=== PATIENT | female | born 1985 | race African-American/Black ===

== ENCOUNTER 2024-12-25 14:36 | Emergency (ER) | payer OTHER ==
--- OUTSIDE RECORDS SUMMARY | 2024-12-25 14:49 | XMS REPORT | Continuity of Care Document ---
Author Name Unknown Address [address] [facility] [address] [place] [address] [facility] [place] Address [address] [facility] [address] [place] [address] Care Team Providers Care Certified Technician Name Role Phone OmairaAyoa Primary Care Physician [phone] CORETTA WATST Attending Clinician Unavail able LAITH ANDRES Attending Clinician UnavailPAULETTE Strong Attending Clinician Unavailab Coretta Mitchell MD Attending Clinician Hermelindo Carias MD Attending Clinician [phone] RONA PEREZ Attending Clinician Unavailable DARRELL LYLES Attending Clinician Unavailable GM CHAWLA Attending Clinician Unavailable Mikayla Hale DNP Attending Clinician [phone] TING SOTO Attending Clinician Unavailable MIKAYLA HALE Attending Clinician Unavailable TAMARA AKINS Attending Clinician Unavailab Marilyn Hutchins MD Attending Clinician [phone]- [phone] Doctor Unassigned, [place] Attending Clinician U MARILYN Da Silva Attending Clinician MARILYN Middleton Attending Clinician LISETH Solitario JR Attending Clinician Unavailable RAFI ANDREWS Attending Clinician UnavailMARIYA Webb Attending Clinician Unavailabl e 2, [facility] Attending Clinician Unavailable JOAQUIN ROSE Attending Clinician UnavailSELINA Hewitt Attending Clinician Unavailab Mariya Avila Attending Clinician [phone] Stephanie Attending Clinician Unavailable RACHELLE Attending Clinician Unavailable GIBRAN COHEN Attending Clinician Unavailable Nguyen_Tho Attending Clinician Unavailable ZACK SUTTON Attending Clinician Unavailable BASSAM WADE Attending Clinician Unavailab BOWEN Miller Attending Clinician Unavail able EUGENIE GANDARA Attending Clinician Unavailable Nichol MINAYA, Eugenie Attending Clinician [phone] BASIM MADRIGAL Attending Clinician Unavailable Maite Garcia MD Attending Clinician [phone] MAITE GARCIA Attending Clinician Unavailadi ramirez Doctor Unassigned, [place] Attending Clinician U Melo Johnson Attending Clinician Unavailable America Nagel Attending Clinician Unavailable MARILYN RAI Admitting Clinician Charles Brown Admitting Clinician Unavailable RACHELLE Admitting Clinician Unavailable Nguyen_Thmaria guadalupe Admitting Clinician Unavailable MAITE GARCIA Admitting Clinician Unavailadi ramirez Physician, No Primary or Family Admitting Clinic aga Unavailable Payers Payer Name Policy Type Policy Number Effective Date Expirati on Date Source [facility] STAR [id number] 2021 00:00:00 [facility] STAR [id number] 2021 00:00:00 [facility] Medicaid [id number] 2024 00:00:00 [facility] [place] [id number] 2023 00:00:00 [place] [id number] [place] [id number] Problems Condition Name Condition Details Condition Category Status Onset Date Resolution Date Last Treatment Date Treating Clinician Comments Source Family history of malignant neoplasm of pancreas Family History of Malignant Neoplasm of Pancreas Problem Active 2024-03 0-16 00:00: 00 [facility] Alopecia Alopecia Problem Active 2024-03 0-08 00:00: 00 [facility] Lower urinary tract symptoms Lower Urinary Tract Symptoms Problem Active 9- 00:00: 00 [facility] 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 Problem Active 9 00:00: 00 [facility] Neck pain Neck Pain Problem Active 7- 00:00: 00 [facility] Headache Headache Problem Active 07-06 00:00: 00 [facility] Myopia of left eye Myopia of Left Eye Problem Active 07-06 00:00: 00 [facility] Regular astigmatis m of right eye Regular Astigmatis m of Right Eye Problem Active 07-06 00:00: 00 [facility] Abnormal uterine bleeding Abnormal Uterine Bleeding Problem Active 3-10 00:00: 00 [facility] Intramural , submucous, and subserous leiomyoma of uterus Intramural , submucous, and subserous leiomyoma of uterus Disease Active - 00:00: 00 [facility] BMI 45.0-49.9, adult BMI 45.0-49.9, adult Disease Active 2-28 00:00: 00 [facility] acute hospital Herpes zoster Herpes Zoster Problem Active 2023-03 2-28 00:00: 00 [facility] Vitamin deficiency Vitamin Deficiency Problem Active 2023-03 1-25 00:00: 00 [facility] Iron deficiency anemia Iron Deficiency Anemia Problem Active 6-04 00:00: 00 [facility] Erythrocyt e sedimentat ion rate - finding Erythrocyt e Sedimentat ion Rate - Finding Problem Active 6-04 00:00: 00 [facility] Cyst of corpus luteum of right ovary Cyst of Corpus Luteum of Right Ovary Problem Active 4-28 00:00: 00 [facility] Acute pelvic pain Acute Pelvic Pain Problem Active 4-15 00:00: 00 [facility] Intramural leiomyoma of uterus Intramural Leiomyoma of Uterus Problem Active 4-15 00:00: 00 [facility] Uterine leiomyoma Uterine Leiomyoma Problem Active 3-12 00:00: 00 [facility] No known active problems No known active problems Disease General acute hospital Allergies, Adverse Reactions, Alerts Allergy Name Allergy Type Status Severity Reaction(s) Onset Date Inactive Date Treating Clinician Comments Source Ciproflo xacin Propensi ty to adverse reaction s Active Other - See comments 2- 00:00: 00 [facility] acute hospital CIPROFLO XACIN DRUG INGREDI Active Other-Cmnt 2-23 00:00: 00 [facility] acute hospital Ciproflo xacin Allergy to substanc e Active Other 2-23 00[facility]00[facility] No Known Allergie s DA Active U 2020-03 2- 00:00: 00 [facility] are [facility] Cipro Allergy to substanc e Active Moderate severity Nausea [facility] Nitrofur antoin Allergy to substanc e Active Mild Nausea [facility] NO KNOWN ALLERGIE S Drug Class Active [facility] acute hospital Family History Family Member Diagnosis Comments Start Date Stop Date Sourc e Natural father Unive [facility] Maternal grandmother Stroke [facility] Natural mother Pancreatic Cancer [facility] Social History Social Habit Start Date Stop Date Quantity Comments Source ASSERTION Not [facility] Al[facility] beverage intake 2024-09-24 00:00:00 2024-09-24 00:00:00 Ex-drinker (finding) [facility] Tobacco use and exposure 2023-10-21 00:00:00 2023-10-21 00:00:00 Smokeless tobacco non-user [facility] Alcohol intake 2023-01-13 00:00:00 2023-01-13 00:00:00 Lifetime non-drinker (finding) [facility] Sex 2021-12-17 09:12:40 2021-12-17 09:12:40 Female (finding) [facility] Exposure to SARS-CoV-2 (event) 2021-07-03 00:00:00 2021-07-13 12:52:00 Not sure [facility] History of Social function 2021-04-06 00:00:00 2021-04-06 00:00:00 [facility] Sex assigned at 1985 00:00:00 1985 00:00:00 F [facility] Smoking Status Start Date Stop Date Source Never smoked tobacco [facility] acute hospital Tobacco smoking consumption unknown [facility] Medications Ordered Medication Name Filled Medication Name Start Date Stop Date Current Medication? Ordering Clinician Indication Dosage Frequency Signature (SIG) Comments Components Source doxycycline monohydrate 100 mg capsule 2024-03 00:00: 00 Yes [id number] 100mg Take 1 capsule by mouth in the morning and 1 capsule in the evening. Take with food and water.. [facility] acute hospital clobetasoL 0.05 % scalp solution 2024-03 00:00: 00 Yes [id number] Apply to areas(s) 2 times daily. Avoid use on the face. [facility] hospital miSOPROStoL 200 mcg tablet 05-17 00:00: 00 Yes [id number] Take one tablet the night before endometria l biopsy procedure and take one tablet the morning of the procedure. This is not for abortive treatment; patient will have endometria l biospy. [facility] acute hospital fluconazole 150 mg tablet 05-07 00:00: 00 05-08 05:59 :00 No [id number] 150mg Take 1 tablet by mouth once now for 1 dose. [facility] nystatin 100,000 unit/gram ointment 2023-03 00:00: 00 09-24 00:00 :00 No [id number] Apply to area(s) 2 (two) times daily as needed for Itching (to vulvar). [facility] triamcinolo ne acetonide 0.1 % topical cream APPLY THIN LAYER TOPICALLY TO THE AFFECTED AREA TWICE DAILY triamcinolo ne acetonide 0.1 % topical cream APPLY THIN LAYER TOPICALLY TO THE AFFECTED AREA TWICE DAILY 2023-03 00:00: 00 No triamcinol one acetonide 0.1 % topical cream APPLY THIN LAYER TOPICALLY TO THE AFFECTED AREA TWICE DAILY [facility] FERROUS SULFATE ORAL 10-20 13:38: 04 Yes Take by mouth. [facility] acute hospital miSOPROStoL 200 mcg tablet 10-20 00:00: 00 Yes [id number] 100 Take one tablet the night before endometria l biopsy procedure and take one tablet the morning of the procedure. This is not for abortive treatment; patient will have endometria l biospy. [facility] acute hospital tobramycin 0.3 % ophthalmic drops 08-11 00:00: 00 Yes [facility] acute hospital carBAMazepi ne (TEGretol) 200 MG tablet 2022-03 08:07: 54 Yes 200mg Take 200 mg by mouth every night. [facility] gabapentin (Neurontin) 300 MG capsule 05-29 00:00: 00 05-11 00:00 :00 No [facility] methylPREDN ISolone (MEDROL, LELIA,) 4 mg tablets 04-06 00:00: 00 Yes Take by mouth SEE-INSTRU CTIONS. follow package directions [facility] acute hospital bromphenira mine-pseudo ephedrine-D M 2-30-10 mg/5 mL syrup 03-29 00:00: 00 Yes [facility] acute [facility] naproxen 500 mg EC tablet 03-29 00:00: 00 Yes [facility] acute hospital iron 65 mg tablet Take by oral route. iron 65 mg tablet Take by oral route. No iron 65 mg tablet Take by oral route. [facility] Vitamin D3 Vitamin D3 No Vitamin D3 [facility] cyclobenzap rine 5 mg tablet Take 1 tablet 3 times a day by oral route as needed, for muscle tightness/s pasm. cyclobenzap rine 5 mg tablet Take 1 tablet 3 times a day by oral route as needed, for muscle tightness/s pasm. No 1 TID cyclobenza cha 5 mg tablet Take 1 tablet 3 times a day by oral route as needed, for muscle tightness/ spasm. [facility] carbamazepi ne 200 mg tablet TAKE 1 TABLET BY MOUTH AT BEDTIME carbamazepi ne 200 mg tablet TAKE 1 TABLET BY MOUTH AT BEDTIME No carbamazep ine 200 mg tablet TAKE 1 TABLET BY MOUTH AT BEDTIME [facility] Bactrim DS 800 mg-160 mg tablet Take 1 tablet every 12 hours by oral route for 7 days. Bactrim DS 800 mg-160 mg tablet Take 1 tablet every 12 hours by oral route for 7 days. No 1 Q12H Bactrim DS 800 mg-160 mg tablet Take 1 tablet every 12 hours by oral route for 7 days. [facility] omeprazole 20 mg capsule,del ayed release Take 1 capsule twice a day by oral route. omeprazole 20 mg capsule,del ayed release Take 1 capsule twice a day by oral route. No 1capsul e(s) BID omeprazole 20 mg capsule,de layed release Take 1 capsule twice a day by oral route. [facility] Slow Fe Slow Fe No Slow Fe M ynes [facility] valacyclovi r 1 gram tablet TAKE 1 TABLET BY MOUTH THREE TIMES DAILY FOR SHINGLES valacyclovi r 1 gram tablet TAKE 1 TABLET BY MOUTH THREE TIMES DAILY FOR SHINGLES No valacyclov ir 1 gram tablet TAKE 1 TABLET BY MOUTH THREE TIMES DAILY FOR SHINGLES [facility] gabapentin 300 mg capsule gabapentin 300 mg capsule No gabapentin 300 mg capsule [facility] metronidazo le 500 mg tablet Take 1 tablet twice a day by oral route for 2 days, for BV prevention every two weeks. metronidazo le 500 mg tablet Take 1 tablet twice a day by oral route for 2 days, for BV prevention every two weeks. No 1 BID metronidaz ole 500 mg tablet Take 1 tablet twice a day by oral route for 2 days, for BV prevention every two weeks. [facility] ondansetron HCl 4 mg tablet ondansetron HCl 4 mg tablet No ondansetro n HCl 4 mg tablet [facility] omeprazole 40 mg capsule,del ayed release TAKE 1 CAPSULE BY MOUTH EVERY DAY omeprazole 40 mg capsule,del ayed release TAKE 1 CAPSULE BY MOUTH EVERY DAY No omeprazole 40 mg capsule,de layed release TAKE 1 CAPSULE BY MOUTH EVERY DAY [facility] Vital Signs Vital Name Observation Time Observation Value Comments S ource BMI (Body Mass Index) 2024-12-23 00:00:00 49.4 kg/m2 [facility] Height 2024-12-23 00:00:00 62 [in_i] [facility] orda [facility] BP Systolic 2024-12-23 00:00:00 118 mm[Hg] [facility] dag[facility]to [facility] BP Diastolic 2024-12-23 00:00:00 78 mm[Hg] [facility] Body Weight 2024-12-23 00:00:00 4323 [oz_av] Ma [facility] Height 2024-12-08 00:00:00 62 [in_i] [facility] BP Diastolic 2024-12-08 00:00:00 82 mm[Hg] [facility] Body Weight 2024-12-08 00:00:00 272.2 [lb_av] [place] [facility] BP Systolic 2024-12-08 00:00:00 122 mm[Hg] [facility] dagoberto [facility] BMI (Body Mass Index) 2024-12-08 00:00:00 49.8 kg/m2 [place] [facility] Height 2024-12-03 00:00:00 62 [in_i] [facility] BMI (Body Mass Index) 2024-12-03 00:00:00 50.7 kg/m2 [place] BP Diastolic 2024-12-03 00:00:00 85 mm[Hg] Jesus friedrdjohana [facility] Body Weight 2024-12-03 00:00:00 4432 [oz_av] Glen zhouordjohana [facility] BP Systolic 2024-12-03 00:00:00 138 mm[Hg] Lyndon arenas [facility] BP Systolic 2024-10-19 00:00:00 139 mm[Hg] Lyndon wilkersona [facility] BMI (Body Mass Index) 2024-10-19 00:00:00 50.4 kg/m2 Jay [facility] Body Weight 2024-10-19 00:00:00 275.4 [lb_av] M franrdjohana [facility] BP Diastolic 2024-10-19 00:00:00 88 mm[Hg] Jesus friedrdjohana [facility] Height 2024-10-19 00:00:00 62 [in_i] Bindu danielsa [facility] Systolic blood pressure 2024-09-24 18:01:00 118 mm[Hg] [facility] Diastolic blood pressure 2024-09-24 18:01:00 78 mm[Hg] [facility] Heart rate 2024-09-24 18:01:00 91 /min [facility] Body temperature 2024-09-24 18:01:00 36.33 [place] [facility] Body height 2024-09-24 18:01:00 160 cm [facility] Body weight 2024-09-24 18:01:00 122.653 kg [facility] BMI 2024-09-24 18:01:00 47.90 kg/m2 [facility] Oxygen saturation in Arterial blood by Pulse oximetry 2024-09-24 18:01:00 100 /min [facility] BMI (Body Mass Index) 2024-09-08 00:00:00 49 kg/m2 [facility] Height 2024-09-08 00:00:00 62 [in_i] Bindu danielsa [facility] BP Diastolic 2024-09-08 00:00:00 70 mm[Hg] [place] [facility] BP Systolic 2024-09-08 00:00:00 115 mm[Hg] Haney dagoberto [facility] Body Weight 2024-09-08 00:00:00 268 [lb_av] Jesus [place] Body Weight 2024-08-26 00:00:00 368.2 [lb_av] [facility] BMI (Body Mass Index) 2024-08-26 00:00:00 67.3 kg/m2 [facility] BP Systolic 2024-08-26 00:00:00 124 mm[Hg] [facility] Height 2024-08-26 00:00:00 62 [in_i] [facility] BP Diastolic 2024-08-26 00:00:00 85 mm[Hg] [facility] BP Systolic 2024-08-23 00:00:00 111 mm[Hg] Haney dagoberto [facility] BP Diastolic 2024-08-23 00:00:00 78 mm[Hg] [place] [facility] Height 2024-08-23 00:00:00 62 [in_i] [place] [facility] [facility] BMI (Body Mass Index) 2024-08-23 00:00:00 48.9 kg/m2 [facility] Body Weight 2024-08-23 00:00:00 4278 [oz_av] [facility] BP Diastolic 2024-08-13 00:00:00 87 mm[Hg] [facility] BP Systolic 2024-08-13 00:00:00 125 mm[Hg] [facility] Body Weight 2024-08-13 00:00:00 267.3 [lb_av] [facility] BMI (Body Mass Index) 2024-08-13 00:00:00 48.9 kg/m2 [facility] Height 2024-08-13 00:00:00 62 [in_i] [facility] Body Weight 2024-07-06 00:00:00 267 [lb_av] Jesus friedrda [facility] Height 2024-07-06 00:00:00 62 [in_i] Bindu orda [facility] BMI (Body Mass Index) 2024-07-06 00:00:00 48.8 kg/m2 [place] [facility] Oxygen saturation in Arterial blood by Pulse oximetry 2024-07-05 13:23:00 99 /min [facility] Systolic blood pressure 2024-07-05 13:23:00 107 mm[Hg] [facility] Diastolic blood pressure 2024-07-05 13:23:00 67 mm[Hg] [facility] Heart rate 2024-07-05 13:23:00 80 /min [facility] Body temperature 2024-07-05 13:23:00 36.39 [place] [facility] Respiratory rate 2024-07-05 13:23:00 17 /min [facility] Body height 2024-07-05 13:23:00 [facility] Body weight 2024-07-05 13:23:00 [facility]02 [facility] BMI 2024-07-05 13:23:00 44.40 [facility]m2 [facility] BP Diastolic 2024-06-23 00:00:00 79 mm[Hg] Jesus friedrda [facility] Height 2024-06-23 00:00:00 62 [in_i] Bindu orda [facility] BMI (Body Mass Index) 2024-06-23 00:00:00 48.9 kg/m2 [place] [facility] Body Weight 2024-06-23 00:00:00 4278 [oz_av] Glen [facility] BP Systolic 2024-06-23 00:00:00 128 mm[Hg] Lyndon wilkersona [facility] Height 2024-06-10 00:00:00 62 [in_i] Bindu danielsa [facility] Body Weight 2024-06-10 00:00:00 263 [lb_av] Jesus friedrda [facility] BP Diastolic 2024-06-10 00:00:00 85 mm[Hg] Jesus friedrda [facility] BP Systolic 2024-06-10 00:00:00 142 mm[Hg] H[facility] dagoberto [facility] BMI (Body Mass Index) 2024-06-10 00:00:00 48.1 kg/m2 [place] [facility] Height 2024-06-03 00:00:00 62 [in_i] [place] [facility] BMI (Body Mass Index) 2024-06-03 00:00:00 49.4 kg/m2 [place] [facility] Body Weight 2024-06-03 00:00:00 270 [lb_av] [facility] [place] [facility] BP Systolic 2024-06-03 00:00:00 113 mm[Hg] Haney dagoberto [facility] BP Diastolic 2024-06-03 00:00:00 70 mm[Hg] [facility] Systolic blood pressure 2024-05-07 17:34:00 124 mm[Hg] [facility] Diastolic blood pressure 2024-05-07 17:34:00 78 mm[Hg] [facility] Heart rate 2024-05-07 17:32:00 84 /min [facility] Body temperature 2024-05-07 17:32:00 36.67 [place] [facility] Body height 2024-05-07 17:32:00 157.5 cm [facility] Body weight 2024-05-07 17:32:00 120.838 kg [facility] BMI 2024-05-07 17:32:00 48.73 kg/m2 [facility] Body Weight 2024-04-27 00:00:00 267 [lb_av] [facility] BP Diastolic 2024-04-27 00:00:00 82 mm[Hg] [facility] Height 2024-04-27 00:00:00 62 [in_i] [facility] BP Systolic 2024-04-27 00:00:00 132 mm[Hg] [facility] BMI (Body Mass Index) 2024-04-27 00:00:00 48.8 kg/m2 [facility] BP Systolic 2024-04-08 00:00:00 131 mm[Hg] [facility] BMI (Body Mass Index) 2024-04-08 00:00:00 48.6 kg/m2 [facility] Body Weight 2024-04-08 00:00:00 265.5 [lb_av] [facility] Height 2024-04-08 00:00:00 62 [in_i] [facility] BP Diastolic 2024-04-08 00:00:00 85 mm[Hg] [facility] BMI (Body Mass Index) 2024-03-22 00:00:00 48.2 kg/m2 [facility] BP Systolic 2024-03-22 00:00:00 108 mm[Hg] H[facility] dagoberto [facility] Body Weight 2024-03-22 00:00:00 263.8 [lb_av] [facility] [facility] BP Diastolic 2024-03-22 00:00:00 73 mm[Hg] [facility] [place] [facility] Height 2024-03-22 00:00:00 62 [in_i] [facility] [facility] BMI (Body Mass Index) 2024-03-06 00:00:00 48.3 kg/m2 [facility] Body Weight 2024-03-06 00:00:00 4224 [oz_av] [place] [facility] BP Systolic 2024-03-06 00:00:00 100 mm[Hg] H[facility] dagoberto [facility] BP Diastolic 2024-03-06 00:00:00 70 mm[Hg] [facility] [place] [facility] Height 2024-03-06 00:00:00 62 [in_i] [facility] [facility] Systolic blood pressure 2024-01-30 13:42:00 111 mm[Hg] [facility] Diastolic blood pressure 2024-01-30 13:42:00 74 mm[Hg] [facility] Heart rate 2024-01-30 13:42:00 77 /min [facility] Respiratory rate 2024-01-30 13:42:00 18 /min [facility] Body height 2024-01-30 13:42:00 157.5 cm [facility] Body weight 2024-01-30 13:42:00 115.667 kg [facility] BMI 2024-01-30 13:42:00 46.64 kg/m2 [facility] Height 2024-01-22 00:00:00 62 [in_i] [place] [facility] BP Systolic 2024-01-22 00:00:00 128 mm[Hg] Haney dagoberto [facility] Body Weight 2024-01-22 00:00:00 4068 [oz_av] [facility] BP Diastolic 2024-01-22 00:00:00 83 mm[Hg] [facility] [place] [facility] BMI (Body Mass Index) 2024-01-22 00:00:00 46.5 kg/m2 [place] [facility] Height 2024-01-16 00:00:00 62 [in_i] [facility] BP Diastolic 2024-01-16 00:00:00 86 mm[Hg] [facility] BP Systolic 2024-01-16 00:00:00 118 mm[Hg] [facility] Body Weight 2024-01-16 00:00:00 251 [lb_av] [facility] BMI (Body Mass Index) 2024-01-16 00:00:00 45.9 kg/m2 [facility] BMI (Body Mass Index) 2024-01-07 00:00:00 45.7 kg/m2 [place] Height 2024-01-07 00:00:00 62 [in_i] [place] [facility] Body Weight 2024-01-07 00:00:00 250 [lb_av] [place] [facility] BP Diastolic 2024-01-07 00:00:00 90 mm[Hg] [facility] [place] [facility] BP Systolic 2024-01-07 00:00:00 124 mm[Hg] [facility] dag[facility] BP Systolic 2023-12-30 00:00:00 111 mm[Hg] [facility] dag[facility] Height 2023-12-30 00:00:00 62 [in_i] [place] [facility] Body Weight 2023-12-30 00:00:00 257.6 [lb_av] [facility] [facility] BMI (Body Mass Index) 2023-12-30 00:00:00 47.1 kg/m2 [facility] BP Diastolic 2023-12-30 00:00:00 69 mm[Hg] [facility] BP Diastolic 2023-12-17 00:00:00 85 mm[Hg] Jesus friedrda [facility] Body Weight 2023-12-17 00:00:00 4048 [oz_av] Glen zhouorda [facility] BP Systolic 2023-12-17 00:00:00 121 mm[Hg] Haney dagoberto [facility] Height 2023-12-17 00:00:00 62 [in_i] Matbalta orda [facility] BMI (Body Mass Index) 2023-12-17 00:00:00 46.3 kg/m2 [place] [facility] BMI (Body Mass Index) 2023-12-12 00:00:00 45.5 kg/m2 [facility] Body Weight 2023-12-12 00:00:00 248.5 [lb_av] [facility] BP Systolic 2023-12-12 00:00:00 122 mm[Hg] [facility] BP Diastolic 2023-12-12 00:00:00 75 mm[Hg] [facility] Height 2023-12-12 00:00:00 62 [in_i] [facility] BP Diastolic 2023-12-04 00:00:00 78 mm[Hg] [facility] Height 2023-12-04 00:00:00 62 [in_i] [facility] BMI (Body Mass Index) 2023-12-04 00:00:00 45.2 kg/m2 [facility] Body Weight 2023-12-04 00:00:00 247.4 [lb_av] [facility] BP Systolic 2023-12-04 00:00:00 117 mm[Hg] [facility] BMI (Body Mass Index) 2023-11-20 00:00:00 45.6 kg/m2 [place] [facility] BP Systolic 2023-11-20 00:00:00 107 mm[Hg] Haney dagoberto [facility] Body Weight 2023-11-20 00:00:00 249.2 [lb_av] M franrda [facility] Height 2023-11-20 00:00:00 62 [in_i] [place] [facility] BP Diastolic 2023-11-20 00:00:00 70 mm[Hg] Mat ag[facility] BP Diastolic 2023-11-11 00:00:00 79 mm[Hg] Mat [facility] Body Weight 2023-11-11 00:00:00 251.8 [lb_av] M franrda [facility] Height 2023-11-11 00:00:00 62 [in_i] [place] [facility] BP Systolic 2023-11-11 00:00:00 123 mm[Hg] Haney dagoberto [facility] BMI (Body Mass Index) 2023-11-11 00:00:00 46.1 kg/m2 [place] [facility] Height 2023-11-03 00:00:00 62 [in_i] [place] [facility] BP Diastolic 2023-11-03 00:00:00 79 mm[Hg] Mat [facility] Body Weight 2023-11-03 00:00:00 250 [lb_av] [facility] BP Systolic 2023-11-03 00:00:00 118 mm[Hg] Haney dagoberto [facility] BMI (Body Mass Index) 2023-11-03 00:00:00 45.7 kg/m2 [place] [facility] Systolic blood pressure 2023-10-21 18:36:00 133 mm[Hg] [facility] Diastolic blood pressure 2023-10-21 18:36:00 78 mm[Hg] [facility] Heart rate 2023-10-21 18:36:00 77 /min [facility] Respiratory rate 2023-10-21 18:36:00 18 /min [facility] Body height 2023-10-21 18:36:00 157.5 cm [facility] Body weight 2023-10-21 18:36:00 114.306 kg [facility] BMI 2023-10-21 18:36:00 46.09 kg/m2 [facility] Body Weight 2023-09-10 00:00:00 3992 [oz_av] Glen [facility] BMI (Body Mass Index) 2023-09-10 00:00:00 45.6 kg/m2 [place] [facility] Height 2023-09-10 00:00:00 62 [in_i] [place] [facility] BP Systolic 2023-09-10 00:00:00 117 mm[Hg] Haney dagoberto [facility] BP Diastolic 2023-09-10 00:00:00 78 mm[Hg] Mat [facility] Height 2023-08-21 00:00:00 62 [in_i] [place] [facility] BP Diastolic 2023-08-21 00:00:00 69 mm[Hg] Mat [facility] Body Weight 2023-08-21 00:00:00 4053 [oz_av] Glen [facility] BMI (Body Mass Index) 2023-08-21 00:00:00 46.3 kg/m2 [place] [facility] BP Systolic 2023-08-21 00:00:00 101 mm[Hg] Haney dagoberto [facility] Body Weight 2023-08-12 00:00:00 4006 [oz_av] Glen [facility] BP Systolic 2023-08-12 00:00:00 121 mm[Hg] Haney dagoberto [facility] BMI (Body Mass Index) 2023-08-12 00:00:00 45.8 kg/m2 [place] [facility] BP Diastolic 2023-08-12 00:00:00 84 mm[Hg] [facility] Height 2023-08-12 00:00:00 62 [in_i] [place] [facility] [facility] Height 2023-07-07 00:00:00 62 [in_i] [facility] BP Systolic 2023-07-07 00:00:00 110 mm[Hg] [facility] BP Diastolic 2023-07-07 00:00:00 77 mm[Hg] [facility] BMI (Body Mass Index) 2023-07-07 00:00:00 44.9 kg/m2 [facility] Body Weight 2023-07-07 00:00:00 245.5 [lb_av] [facility] Body Weight 2023-06-30 00:00:00 246 [lb_av] Jesus [facility] Height 2023-06-30 00:00:00 62 [in_i] [place] [facility] BP Systolic 2023-06-30 00:00:00 113 mm[Hg] Haney dagoberto [facility] BP Diastolic 2023-06-30 00:00:00 79 mm[Hg] Mat [facility] BMI (Body Mass Index) 2023-06-30 00:00:00 45 kg/m2 [place] [facility] BP Systolic 2023-06-23 00:00:00 114 mm[Hg] [facility] Body Weight 2023-06-23 00:00:00 250 [lb_av] [facility] Height 2023-06-23 00:00:00 62 [in_i] [facility] BP Diastolic 2023-06-23 00:00:00 82 mm[Hg] [facility] BMI (Body Mass Index) 2023-06-23 00:00:00 45.7 kg/m2 [facility] Height 2023-06-12 00:00:00 62 [in_i] Bindu orda [facility] Body Weight 2023-06-12 00:00:00 249.6 [lb_av] M atag[facility]a [facility] BP Systolic 2023-06-12 00:00:00 126 mm[Hg] Haney dagoberto [facility] BMI (Body Mass Index) 2023-06-12 00:00:00 45.7 kg/m2 [place] [facility] BP Diastolic 2023-06-12 00:00:00 83 mm[Hg] Jesus agorda [facility] Body Weight 2023-06-04 00:00:00 249.6 [lb_av] M at[facility] BP Systolic 2023-06-04 00:00:00 119 mm[Hg] Haney dagoberto [facility] BMI (Body Mass Index) 2023-06-04 00:00:00 45.7 kg/m2 [place] [facility] BP Diastolic 2023-06-04 00:00:00 87 mm[Hg] [facility] Height 2023-06-04 00:00:00 62 [in_i] [place] [facility] [facility] BMI (Body Mass Index) 2023-05-22 00:00:00 47 kg/m2 [place] [facility] BP Diastolic 2023-05-22 00:00:00 78 mm[Hg] [facility] Height 2023-05-22 00:00:00 62 [in_i] [place] [facility] Body Weight 2023-05-22 00:00:00 257 [lb_av] [facility] BP Systolic 2023-05-22 00:00:00 107 mm[Hg] Haney dagoberto [facility] BP Systolic 2023-05-13 00:00:00 107 mm[Hg] Haney dagoberto [facility] Body Weight 2023-05-13 00:00:00 254 [lb_av] Jesus friedrda [facility] Height 2023-05-13 00:00:00 62 [in_i] Bindu orda [facility] BP Diastolic 2023-05-13 00:00:00 77 mm[Hg] Jesus friedrda [facility] BMI (Body Mass Index) 2023-05-13 00:00:00 46.5 kg/m2 [place] [facility] Systolic blood pressure 2023-05-12 19:10:00 127 mm[Hg] [facility] Diastolic blood pressure 2023-05-12 19:10:00 88 mm[Hg] [facility] Heart rate 2023-05-12 19:10:00 77 /[facility] 2023-05-12 19:10:00 [facility]667 [facility] BMI 2023-05-12 19:10:00 46.64 [facility]m2 [facility] Oxygen saturation in Arterial blood by Pulse oximetry 2023-05-12 19:10:00 99 /min [facility] BMI (Body Mass Index) 2023 00:00:00 47.5 kg/m2 [place] [facility] Body Weight 2023 00:00:00 4151 [oz_av] Glen adams [facility] Height 2023 00:00:00 62 [in_i] Bindu orda [facility] BP Systolic 2023 00:00:00 130 mm[Hg] Lyndon wilkersona [facility] BP Diastolic 2023 00:00:00 87 mm[Hg] Jesus friedrda [facility] Height 2023-04-29 00:00:00 62 [in_i] Bindu orda [facility] BP Systolic 2023-04-29 00:00:00 133 mm[Hg] Haney dagoberto [facility] BMI (Body Mass Index) 2023-04-29 00:00:00 47 kg/m2 [place] [facility] Body Weight 2023-04-29 00:00:00 4112 [oz_av] Glen [facility] BP Diastolic 2023-04-29 00:00:00 86 mm[Hg] Jesus ag[facility]a [facility] Body Weight 2023-04-28 00:00:00 258.8 [lb_av] Nimco [facility]lagorda [facility] BP Systolic 2023-04-28 00:00:00 121 mm[Hg] Haney dagoberto [facility] Height 2023-04-28 00:00:00 62 [in_i] [place] or[facility] BP Diastolic 2023-04-28 00:00:00 90 mm[Hg] [facility] BMI (Body Mass Index) 2023-04-28 00:00:00 47.3 kg/m2 [place] [facility] Body Weight 2023-04-22 00:00:00 4240 [oz_av] [place] [facility] [facility] BP Systolic 2023-04-22 00:00:00 135 mm[Hg] Haney dagoberto [facility] BMI (Body Mass Index) 2023-04-22 00:00:00 48.5 kg/m2 [place] [facility] Height 2023-04-22 00:00:00 62 [in_i] [facility] [facility] BP Diastolic 2023-04-22 00:00:00 92 mm[Hg] [facility] Body Weight 2023-04-10 00:00:00 260 [lb_av] Jesus friedrda [facility] BMI (Body Mass Index) 2023-04-10 00:00:00 47.6 kg/m2 [place] [facility] Height 2023-04-10 00:00:00 62 [in_i] [facility] [facility] [facility] BMI (Body Mass Index) 2023-04-07 00:00:00 47.6 kg/m2 [place] [facility] BP Diastolic 2023-04-07 00:00:00 78 mm[Hg] Mat [facility] Body Weight 2023-04-07 00:00:00 260 [lb_av] Jesus friedrdjohana [facility] BP Systolic 2023-04-07 00:00:00 105 mm[Hg] Lyndon wilkersona [facility] Height 2023-04-07 00:00:00 62 [in_i] Bindu danielsa [facility] Height 2023-03-26 00:00:00 62 [in_i] Bindu danielsa [facility] BP Systolic 2023-03-26 00:00:00 106 mm[Hg] Lyndon arenas [facility] Body Weight 2023-03-26 00:00:00 4216 [oz_av] Glen adams [facility] BP Diastolic 2023-03-26 00:00:00 70 mm[Hg] Jesus friedrda [facility] BMI (Body Mass Index) 2023-03-26 00:00:00 48.2 kg/m2 [place] [facility] Systolic blood pressure 2023-01-13 14:06:00 116 mm[Hg] [facility] Diastolic blood pressure 2023-01-13 14:06:00 65 mm[Hg] [facility] Heart rate 2023-01-13 14:06:00 74 /min [facility] Body weight 2023-01-13 14:06:00 118.842 [facility] BMI 2023-01-13 14:06:00 47.92 kg/m2 [facility] in Arterial blood by Pulse oximetry 2023-01-13 14:06:00 98 /min [facility] Height 2022-12-17 00:00:00 62 [in_i] Bindu stubbs [facility] BMI (Body Mass Index) 2022-12-17 00:00:00 47.2 kg/m2 [place] [facility] Body Weight 2022-12-17 00:00:00 258 [lb_av] Jesus friedrda [facility] Body Weight 2022-12-09 00:00:00 4128 [oz_av] Glen zhouordjohana [facility] Height 2022-12-09 00:00:00 62 [in_i] [place] [facility] BMI (Body Mass Index) 2022-12-09 00:00:00 47.2 kg/m2 [place] [facility] BP Diastolic 2022-12-09 00:00:00 78 mm[Hg] Mat [facility] BP Systolic 2022-12-09 00:00:00 116 mm[Hg] Haney dagoberto [facility] BP Diastolic 2022-10-02 00:00:00 85 mm[Hg] [facility] Height 2022-10-02 00:00:00 62 [in_i] Matbal[place] orda [facility] BMI (Body Mass Index) 2022-10-02 00:00:00 48.6 kg/m2 [place] [facility] BP Systolic 2022-10-02 00:00:00 136 mm[Hg] Haney dagoberto [facility] Body Weight 2022-10-02 00:00:00 4248 [oz_av] Ma tagorda [facility] BP Diastolic 2022-08-12 00:00:00 79 mm[Hg] [facility] [facility] Height 2022-08-12 00:00:00 62 [in_i] Matbal[place] orda [facility] BMI (Body Mass Index) 2022-08-12 00:00:00 49.5 kg/m2 [place] [facility] BP Systolic 2022-08-12 00:00:00 115 mm[Hg] Haney dagoberto [facility] Body Weight 2022-08-12 00:00:00 4326 [oz_av] Ma tagorda [facility] BP Diastolic 2022-08-01 00:00:00 82 mm[Hg] Mat [facility] Height 2022-08-01 00:00:00 62 [in_i] [facility] or[facility] BMI (Body Mass Index) 2022-08-01 00:00:00 49.6 kg/m2 [place] [facility] BP Systolic 2022-08-01 00:00:00 131 mm[Hg] Haney dagoberto [facility] Body Weight 2022-08-01 00:00:00 4339 [oz_av] Ma tagorda [facility] BP Diastolic 2022-07-30 00:00:00 86 mm[Hg] Mat [facility] Height 2022-07-30 00:00:00 62 [in_i] [place] [facility] [facility] BMI (Body Mass Index) 2022-07-30 00:00:00 52.7 kg/m2 [place] [facility] BP Systolic 2022-07-30 00:00:00 126 mm[Hg] Haney dagoberto [facility] Body Weight 2022-07-30 00:00:00 288 [lb_av] Mat fariharda [facility] BP Diastolic 2022-07-18 00:00:00 83 mm[Hg] Mat fariharda [facility] Height 2022-07-18 00:00:00 62 [in_i] [place] or[facility] BMI (Body Mass Index) 2022-07-18 00:00:00 50.8 kg/m2 [place] [facility] BP Systolic 2022-07-18 00:00:00 120 mm[Hg] Haney dagoberto [facility] Body Weight 2022-07-18 00:00:00 278 [lb_av] [facility] BP Diastolic 2022-07-10 00:00:00 84 mm[Hg] [facility] Height 2022-07-10 00:00:00 62 [in_i] [place] or[facility] BMI (Body Mass Index) 2022-07-10 00:00:00 51.3 kg/m2 [place] [facility] BP Systolic 2022-07-10 00:00:00 124 mm[Hg] Haney dagoberto [facility] Body Weight 2022-07-10 00:00:00 4488 [oz_av] Glen tagorda [facility] BP Diastolic 2022-07-01 00:00:00 89 mm[Hg] Mat [facility] Height 2022-07-01 00:00:00 62 [in_i] Bindu orda [facility] BMI (Body Mass Index) 2022-07-01 00:00:00 52.1 kg/m2 [place] [facility] BP Systolic 2022-07-01 00:00:00 133 mm[Hg] Lyndon wilkersona [facility] Body Weight 2022-07-01 00:00:00 285 [lb_av] Jesus friedrda [facility] Systolic blood pressure 2022-06-04 19:24:00 126 mm[Hg] [facility] Diastolic blood pressure 2022-06-04 19:24:00 76 mm[Hg] [facility] Heart rate 2022-06-04 19:24:00 73 /min [facility] Body temperature 2022-06-04 19:24:00 36.5 [place] [facility] Body height 2022-06-04 19:24:00 157.5 cm [facility] Body weight 2022-06-04 19:24:00 127.007 [facility] BMI 2022-06-04 19:24:00 51.21 kg/m2 [facility] BP Diastolic 2022-05-20 00:00:00 80 mm[Hg] Jesus friedrda [facility] Height 2022-05-20 00:00:00 62 [in_i] Bindu danielsa [facility] BMI (Body Mass Index) 2022-05-20 00:00:00 52.1 kg/m2 [place] [facility] BP Systolic 2022-05-20 00:00:00 123 mm[Hg] Lyndon wilkersona [facility] Body Weight 2022-05-20 00:00:00 4560 [oz_av] Glen ang[place] [facility] BP Diastolic 2022-03-14 00:00:00 79 mm[Hg] Jesus friedrda [facility] Height 2022-03-14 00:00:00 62 [in_i] Bindu orda [facility] BMI (Body Mass Index) 2022-03-14 00:00:00 51.4 kg/m2 [place] [facility] BP Systolic 2022-03-14 00:00:00 117 mm[Hg] Haney dagoberto [facility] Body Weight 2022-03-14 00:00:00 281 [lb_av] Jesus friedrda [facility] BP Diastolic 2022-01-28 00:00:00 82 mm[Hg] Jesus friedrda [facility] Height 2022-01-28 00:00:00 62 [in_i] Bindu orda [facility] BMI (Body Mass Index) 2022-01-28 00:00:00 51.4 kg/m2 [place] [facility] BP Systolic 2022-01-28 00:00:00 122 mm[Hg] Lyndon wilkersona [facility] Body Weight 2022-01-28 00:00:00 4498 [oz_av] Glen zhouorda [facility] BP Diastolic 2021-12-04 00:00:00 84 mm[Hg] Jesus friedrda [facility] Height 2021-12-04 00:00:00 62 [in_i] Bindu danielsa [facility] BMI (Body Mass Index) 2021-12-04 00:00:00 53.4 kg/m2 [place] [facility] BP Systolic 2021-12-04 00:00:00 120 mm[Hg] Lyndon wilkersona [facility] Body Weight 2021-12-04 00:00:00 4673 [oz_av] Glen zhouorda [facility] Height 2021-11-22 00:00:00 62 [in_i] Bindu danielsa [facility] Body height 2021-05-14 22:26:00 157.5 cm [facility] Body weight 2021-05-14 22:26:00 131.997 kg [facility] BMI 2021-05-14 22:26:00 53.22 kg/m2 [facility] Systolic blood pressure 2024-01-30 13:42:00 111 mm[Hg] [facility] Diastolic blood pressure 2024-01-30 13:42:00 74 mm[Hg] [facility] Heart rate 2024-01-30 13:42:00 77 /min [facility] Respiratory rate 2024-01-30 13:42:00 18 /min [facility] Body height 2024-01-30 13:42:00 157.5 cm [facility] Body weight 2024-01-30 13:42:00 115.667 kg [facility] BMI 2024-01-30 13:42:00 46.64 kg/m2 [facility] Oxygen saturation in Arterial blood by Pulse oximetry 2021-04-06 17:23:00 100 /min [facility] Procedures Procedure Date / Time Performed Performing Clinician Source unlisted imaging order 2024-12-23 00:00:00 [facility] unlisted imaging order 2024-10-19 [facility], diagnostic, digital, unilateral 2024-10-19 00:00:00 [facility] POCT URINALYSIS W/O SPECIFIC GRAVITY 2024-09-24 00:00:00 Mikayal Hale [facility] US PELVIS COMPLETE WITH TRANSVAGINAL 2024-08-03 15:16:57 Marilyn Rai [facility] SCANNED LAB RESULTS 2024-06-03 17:40:28 Doctor Unassigned, [place] [facility] POCT TEST 2024-05-07 00:00:00 Mikayla Hale [facility] POCT URINALYSIS W/O SPECIFIC GRAVITY 2024-05-07 00:00:00 Mikayla Hale [facility] HIV 1/2 AG-AB WITH REFLEX 2024-01-30 14:13:00 Mikayla Hale [facility] HCV ANTIBODY 2024-01-30 14:13:00 Mikayla Hale [facility] HEPATITIS B SURFACE ANTIGEN 2024-01-30 14:13:00 Mikayla Hale [facility] ADC OR SERAFIN ONLY - RPR 2024-01-30 14:13:00 Mikayla Hale [facility] GC & CHLAMYDIA AMPLIFIED ASSAY 2024-01-10 2 14:06:00 Mikayla Hale [facility] GALV ONLY - VAGINAL PATHOGEN S BY NUCLEIC ACID TESTING 2024-01-30 14:06:00 Mikayla Hale [facility] POCT URINALYSIS W/O SPECIFIC GRAVITY 2024-01-30 00:00:00 Mikayla Hale [facility] POCT URINALYSIS W/O SPECIFIC GRAVITY 2024-01-30 00:00:00 Mikayla Hale [facility] US PELVIS COMPLETE WITH TRANSVAGINAL 2023-12-08 16:54:30 Marilyn Rai [facility] Colonoscopy 2023-10-06 00:00:00 [place] [facility] Esophagogastroduodenoscopy 2023-10-06 00:00:00 [place] [facility] REFERRAL- REQUEST/RESPONSE 2023-08-01 14:23:58 Doctor Unassigned, [place] [facility] unlisted imaging order 2023-05-13 00:00:00 [place] [facility] US, transvaginal 2023-04-28 00:00:00 [place] [facility] unlisted imaging order 2022-07-18 00:00:00 [place] [facility] unlisted imaging order 2021-12-04 00:00:00 [place] [facility] EMG/NCV 2021-07-13 05:01:00 Maite Garcia [facility] CT, head + brain, w/o contrast 2021-05-08 7 00:00:00 [place] [facility] REFERRAL- REQUEST/RESPONSE 2021-05-04 06:01:00 Doctor Unassigned, [place] [facility] Delivery 2015-10-24 00:00:00 [facility] Ligation of Bilateral Fallop aga Tubes 2015-10-16 00:00:00 [place] [facility] Delivery 2010-01-16 00:00:00 [facility] Delivery 2008-10-14 00:00:00 [facility] Section [facility] Caesarean Section [facility] Tubal Ligation [facility] Encounters Start Date/Time End Date/Time Encounter Type Admission Type Attending Clinicians Care Facility Care Department Encounter ID Source 2024-12-31 08:00:00 Inpatient CLAUDIA WATTSCORETTA [facility] [id number] [facility] 2023-08-25 11:45:00 Inpatient LAITH KINNEY [facility] [id number] [facility] 2023-07-28 12:15:00 Inpatient LAITH KINNEY [facility] [id number] [facility] 2023-05-20 11:00:00 Inpatient PAULETTE ACOSTA [facility] [id number] [facility] 2022-09-23 10:32:37 Outpatient [facility] [id number] [facility] 2022-07-24 10:30:00 Inpatient PAULETTE ACOSTA [facility] [id number] [facility] 2022-06-17 11:26:57 Outpatient [facility] [id number] [facility] 2022-06-04 13:53:55 Outpatient [facility] [id number] [facility] 2022-04-16 16:30:19 Outpatient [facility] [id number] [facility] 2021-12-17 09:12:51 Outpatient [facility] [id number] [facility] 2024-12-23 00:00:00 2024-12-23 00:00:00 Coretta Watts, ENGINEER THIRD ASSISTANT: Claudia Ellis, [place] [address] , Ph. [facility] [place] [id number] [facility] 2024-12-15 10:30:00 2024-12-15 10:45:00 Office Visit Luciana Piedra, Coretta Carias, Hermelindo Peck [facility] .[id number] General acute hospital 2024-12-14 16:25:00 2024-12-14 18:20:00 Emergency ER RONA PEREZ [facility] [id number] [facility] 2024-12-12 10:40:00 2024-12-12 16:41:00 Emergency ER DARRELL LYELS [facility] [id number] [facility] 2024-12-08 00:00:00 2024-12-08 00:00:00 Ting Soto, ENGINEER THIRD ASSISTANT: [address], [place] [address] , [facility]. [facility]ostic[facility] H[facility] - [facility] COASTAL/HARBOR DEFENSE OFFICER [phone] [id number] [facility] 2024-12-03 00:00:00 2024-12-03 00:00:00 Nata Shipman, ENGINEER THIRD ASSISTANT: [address], [place] [address] , Ph. [facility] [place] Gnosticism HOP - [facility] Primary Expansion [phone] [id number] [facility] 2024-11-01 08:30:00 2024-11-01 08:30:00 Outpatient GM CHAWLA [facility] [id number] [facility] 2024-09-27 00:00:00 2024-10-30 18:32:18 Patient Secure Mikayla Maloney [facility] 1..840.114 350.1.13.10 4.2.7.2.686 [id number] General acute hospital 2024-09-28 00:00:00 2024-10-30 18:29:25 Patient Secure Msg Mikayla Hale [facility] 1.2.840.114 350.1.13.10 4.2.7.2.686 [id number] General acute hospital 2024-10-28 13:19:00 2024-10-28 13:19:00 Outpatient CLAUDIA SOTO TING [facility] [id number] [facility] 2024-10-19 00:00:00 2024-10-19 00:00:00 Ting Soto, ENGINEER THIRD ASSISTANT: [address], [place] [address] , Ph. [facility] - [facility] COASTAL/HARBOR DEFENSE OFFICER [phone] [id number] [facility] 2024-09-24 13:30:00 2024-09-24 13:40:00 Office Visit R MIKAYLA HALE [facility] 1.2.840.114 350.1.13.10 4.2.7.2.686 [id number] General acute hospital 2024-09-15 10:34:00 2024-09-15 10:34:00 Outpatient CLAUDIA AKINS TAMARA [facility] [id number] [facility] 2024-08-08 00:00:00 2024-09-11 18:28:05 Patient Secure Msg Marilyn Quinones [facility] 1.2.840.114 350.1.13.10 4.2.7.2.686 [id number] General acute hospital 2024-08-09 00:00:00 2024-09-11 18:27:21 Patient Secure Msg Doctor Unassigned, [place] Doctor Unassigned, [place] [facility] 1.2.840.114 350.1.13.10 4.2.7.2.686 [id number] General acute hospital 2024-09-08 00:00:00 2024-09-08 00:00:00 Ting Soto, ENGINEER THIRD ASSISTANT: [address], [place] [address] , Ph. [facility] Gnosticism [facility] COASTAL/HARBOR DEFENSE OFFICER [phone] [id number] [facility] 2024-09-02 13:53:20 2024-09-02 23:59:[address] [facility] [id number] 5 [facility] 2024-07-22 00:00:00 2024-08-28 18:30:30 Patient Secure Msg Marilyn Quinones [place] [address].2.840.114 350.1.13.10 4.2.7.2.686 [id number] General acute hospital 2024-08-26 00:00:00 2024-08-26 00:00:00 Mariya Cobb MD: [address] [place] [address], [address], [place] [address] , Ph. [phone] [facility] [phone] 0619 [facility] 2024-08-23 00:00:00 2024-08-23 00:00:00 Coretta Watts, ENGINEER THIRD ASSISTANT: [address], [place] [address] , Ph. [facility] Gnosticism [place] [address] [phone] [facility] 2024-08-13 00:00:00 2024-08-13 00:00:00 Mariya Cobb MD: [address] [place] [address], [address], [place] [address] , Ph. [phone] [facility] [place] - OBGYN [phone] 0606 [facility] 2024-08-03 09:14:45 2024-08-03 23:59:00 Hospital Encounter R MENDOZA-ERMA S, MARILYN MENDOZA-ERMA S, MARILYN [facility] 1.2.840.114 350.1.13.10 4.2.7.2.686 [id number] General acute hospital 2024-07-28 10:00:00 2024-07-28 10:00:00 Outpatient LISETH AMAYA JR [facility] [id number] [facility] 2024-07-22 00:00:00 2024-07-22 13:10:53 Results Follow-Up Gm Chawla [facility] 1.840.114 350.1.13.58 9.2.7.2.686 [id number] [facility] 2024-07-06 00:00:00 2024-07-06 12:15:43 Results Follow-Up Gm Chawla 1.2.840.114 350.1.13.58 9.2.7.2.686 [id number] [facility] 2024-07-06 00:00:00 2024-07-06 00:00:00 Joellen Abarca MD: [address] , [place] [address] , Ph. [facility] Gnosticism [facility] [address] [facility] Eye Clinic [phone] 05332 [facility] 2024-07-05 08:30:00 2024-07-05 08:51:26 Office Visit Gm Chawla 1.2.840.114 350.1.13.58 9.2.7.2.686 [id number] [facility] 2024-06-30 18:28:00 2024-06-30 19:34:00 Emergency ER RAFI ANDREWS [facility] [id number] [facility] 2024-06-25 00:00:00 2024-06-25 00:00:00 Outpatient R MENDOZA-ERMA S, MARILYN MENDOZA-ERMA S, MARILYN [facility] [id number] General acute hospital 2024-06-23 00:00:00 2024-06-23 00:00:00 Coretta Watts, ENGINEER THIRD ASSISTANT: [address] [address] , Ph. [facility] Gnosticism [place] [address] [phone] [id number] [facility] Outre[facility] Program 2024-06-18 09:00:00 2024-06-18 09:00:00 Outpatient R MENDOZA-ERMA S, MARILYN MENDOZA-ERMA S, MARILYN [facility] [id number] General acute hospital 2024-06-16 00:00:00 2024-06-16 10:45:44 Patient Secure Msg Mendoza-Erma s, Marilyn [facility] 1.2.840.114 350.1.13.10 4.2.7.2.686 [id number] General acute hospital 2024-06-14 00:00:00 2024-06-14 00:00:00 Outpatient R MENDOZA-ERMA S, MARILYN MENDOZA-ERMA S, MARILYN [facility] [id number] General acute hospital 2024-06-10 00:00:00 2024-06-10 00:00:00 Ting Soto, ENGINEER THIRD ASSISTANT: [address], [place] [address] , Ph. [facility] Gnosticism [facility] COASTAL/HARBOR DEFENSE OFFICER [phone] [id number] [facility] Outreac [facility] Program 2024-06-07 09:30:00 2024-06-07 09:30:00 Outpatient R MENDOZA-ERMA S, MARILYN MENDOZA-ERMA S, MARILYN [facility] [id number] General acute hospital 2024-06-03 00:00:00 2024-06-05 02:04:34 Orders Only Doctor Unassigned, [place] Doctor Unassigned, [place] [facility] 1..840.114 350.1.13.10 4.2.7.2.686 [id number] General acute hospital 2024-06-03 00:00:00 2024-06-03 00:00:00 Laith Andres MD: [address] [place] [address] , Ph. [facility] Gnosticism [facility] [phone] [id number] [facility] Program 2024-05-31 00:00:00 2024-05-31 00:00:00 Outpatient R MENDOZA-ERMA S, MARILYN MENDOZA-ERMA S, MARILYN [facility] [id number] General acute hospital 2024-05-17 14:00:00 2024-05-17 14:00:00 Outpatient R MENDOZA-ERMA S, MARILYN MENDOZA-ERMA S, MARILYN [facility] [id number] General acute hospital 2024-05-07 11:30:00 2024-05-07 12:00:38 Outpatient R MIKAYLA HALE [facility] [id number] General acute hospital 2024-05-07 11:30:00 2024-05-07 12:00:38 Office Visit [facility] 1..840.114 350.1.13.10 4.2.7.2.686 [id number] General acute hospital 2024-05-03 00:00:00 2024-05-03 10:45:30 Patient Secure Msg Doctor Unassigned, [place] Doctor Unassigned, [place] [facility] 1.2.840.114 350.1.13.10 4.2.7.2.686 [id number] General acute hospital 2024-04-29 00:00:00 2024-04-30 16:27:07 Telephone Dallin posadas Marilyn [facility] BU[facility] 1.2.840.114 350.1.13.10 4.2.7.2.686 [id number] General acute hospital 2024-04-28 15:45:00 2024-04-28 17:35:00 Emergency ER RONA PEREZ [facility] [id number] [facility] 2024-04-27 14:22:00 2024-04-27 14:22:00 Outpatient MARIYA REEVES [facility] [id number] [facility] 2024-04-27 00:00:00 2024-04-27 00:00:00 Mariya Cobb MD: [address] [place] [address], [address], [place] [address] , Ph. [phone] [facility] [id number] 0218 [facility] 2023-08-01 00:00:00 2024-04-24 07:42:02 Orders Only Doctor Unassigned, [place] Doctor Unassigned, [place] [facility] 1.2.840.114 350.1.13.10 4.2.7.2.686 [id number] General acute hospital 2024-04-08 16:23:00 2024-04-08 16:23:00 Outpatient MARIYA REEVES [facility] [id number] [facility] 2024-04-08 00:00:00 2024-04-08 00:00:00 Mariya Cobb MD: [address] [facility], [address], [place] [address] , Ph. [phone] [facility] [phone] 0130 [facility] 2024-03-22 00:00:00 2024-03-22 00:00:00 Ting Soto, ENGINEER THIRD ASSISTANT: [address], [place] [address] , Ph. [facility] Gnosticism [facility] COASTAL/HARBOR DEFENSE OFFICER [phone] 85932 [facility] 2024-03-06 00:00:00 2024-03-06 00:00:00 Maria D Hannon, ENGINEER THIRD ASSISTANT: [address], [place] [address] , Ph. [facility] Gnosticism [facility] Primary Expansion [id number] [facility] 2024-02-13 15:30:00 2024-02-13 15:30:00 Outpatient R MARILYN QUINONES MARISOL [facility] [id number] General acute hospital 2024-02-09 00:00:00 2024-02-09 14:17:22 Telephone Marilyn Quinones 1..840.1 52615.1.1 3.104.2.7 .3.773860 .8 [id number] General acute hospital 2024-01-30 08:15:00 2024-01-30 08:15:00 Digital Solution Architect Visit Mikayla Hale 2, [facility] 1.2.840.1 45525.1.1 3.104.2.7 .3.243304 .8 [id number] General acute hospital 2024-01-30 07:30:00 2024-01-30 08:04:42 Outpatient MIKAYLA GARAY [facility] [id number] General acute hospital 2024-01-30 07:30:00 2024-01-30 08:04:42 Office Visit ZachMikayla hardy 1.2.840.1 36510.1.1 3.104.2.7 .3.870038 .8 [id number] General acute hospital 2024-01-30 00:00:00 2024-01-30 00:00:00 Travel 1.2.840.1 27554.1.1 3.104.2.7 .3.086005 .8 1.2.840.114 350.1.13.10 4.2.7.3.698 [id number] General acute hospital 2024-01-29 00:00:00 2024-01-29 00:00:00 Travel 1.2.840.1 74609.1.1 3.104.2.7 .3.254989 .8 1.2.840.114 350.1.13.10 4.2.7.3.698 [id number] General acute hospital 2024-01-23 11:30:00 2024-01-23 11:30:00 Outpatient MIKAYLA GARAY [facility] [id number] General acute hospital 2024-01-22 00:00:00 2024-01-22 00:00:00 Nata Shipman, ENGINEER THIRD ASSISTANT: [facility] [place] [address] , Ph. [facility] [phone] 31225 [facility] 2024-01-20 08:00:00 2024-01-20 08:00:00 Outpatient MARILYN FALL [facility] [id number] General acute hospital 2024-01-16 00:00:00 2024-01-16 00:00:00 Mariya Cobb MD: [address] [place] [address], [address], [place] [address] , Ph. [phone] [facility] [place] - OBGYN [phone] 1108 [facility] 2024-01-07 00:00:00 2024-01-07 00:00:00 Ting Soto, ENGINEER THIRD ASSISTANT: [address], [place] [address] , Ph. [facility] - [facility] COASTAL/[place]ARB[place] DEFENSE OFFICER [phone] 88344 [facility] 2023-12-30 00:00:00 2023-12-30 00:00:00 Ting Soto, ENGINEER THIRD ASSISTANT: [address], [place] [address] , Ph. [facility] Gnostic[facility] HOP - [facility] COASTAL/[place] DEFENSE OFFICER [phone] [id number] [facility] 2023-12-25 07:43:00 2023-12-25 10:14:00 Emergency ER MILTONNURAJOAQUIN [facility] [id number] [facility] 2023-12-20 13:40:00 2023-12-20 15:24:00 Emergency ER SELINA TIWARI [facility] [id number] [facility] 2023-12-17 00:00:00 2023-12-17 00:00:00 Coretta Watts, ENGINEER THIRD ASSISTANT: [address], [place] [address] , Ph. [facility] Gnosticism [place] [address] [phone] 01182 [facility] 2023-12-12 00:00:00 2023-12-12 00:00:00 Mariya Cobb MD: [address] [place] [address], [address], [place] [address] , Ph. [phone] [facility] - OBGYN [address] 1004 [facility] 2023-12-09 00:00:00 2023-12-09 14:42:53 Telephone Dallin sIrmaMarilyn [facility] PROFESSIO NAL BUILDING 1.2.840.114 350.1.13.10 4.2.7.2.686 [id number] General acute hospital 2023-12-08 10:41:18 2023-12-08 23:59:00 Outpatient R MENDOZA-ERMA S, MARILYN MENDOZA-ERMA S, MARILYN [facility] [id number] General acute hospital 2023-12-08 10:41:18 2023-12-08 23:59:00 Hospital Encounter Raciel-Erma s, Marilyn [facility] 1.2.840.114 350.1.13.10 4.2.7.2.686 [id number] General acute hospital 2023-12-04 00:00:00 2023-12-04 00:00:00 Mariya Cobb MD: [address] [facility], [address], [place] [address] , Ph. [phone] [facility] - OBN [id number] 0926 [facility] 2023-11-28 00:00:00 2023-12-01 16:28:25 Telephone Irma [facility]ol [facility] BU[facility] 1.2.840.114 350.1.13.10 4.2.7.2.686 [id number] General acute hospital 2023-11-20 00:00:00 2023-11-20 00:00:00 Ting Soto, ENGINEER THIRD ASSISTANT: [address], [place] [address] , Ph. [facility] Gnosticism [facility] COASTAL/HARBOR DEFENSE OFFICER [phone] 68329 [facility] Program 2023-11-18 11:00:00 2023-11-18 11:00:00 Outpatient R MENDOZA-ERMA S, MARILYN MENDOZA-ERMA S, MARILYN [facility] [id number] General acute hospital 2023-11-11 00:00:00 2023-11-11 00:00:00 Ting Soto NP: [address], [place] [address] , Ph. [facility] HOP [facility] COASTAL/HARBOR DEFENSE OFFICER [phone] [facility] 2023-11-03 00:00:00 2023-11-03 00:00:00 Laith Andres MD: [address], [place] [address] , Ph. [facility] [phone] 31526 [facility] 2023-10-31 10:30:00 2023-10-31 10:30:00 Outpatient R MENDOZA-ERMA S, MARILYN MENDOZA-ERMA S, MARILYN [facility] [id number] General acute hospital 2023-10-22 00:00:00 2023-10-23 07:20:41 Telephone Mendoza-Erma s Marilyn [facility] 1.2.840.114 350.1.13.10 4.2.7.2.686 [id number] General acute hospital 2023-10-21 00:00:00 2023-10-22 08:16:54 Telephone Mendoza-Erma s, Marilyn [facility] 1.2.840.114 350.1.13.10 4.2.7.2.686 [id number] General acute hospital 2023-10-21 13:30:00 2023-10-21 14:03:43 Office Visit Jaimiei s, Marilyn [facility] 1.2.840.114 350.1.13.10 4.2.7.2.686 [id number] General acute hospital 2023-10-21 13:30:00 2023-10-21 14:03:43 Outpatient R MENDOZA-ERMA S, MARILYN MENDOZA-ERMA S, MARILYN [facility] [id number] General acute hospital 2023-10-07 13:30:00 2023-10-07 13:30:00 Outpatient R MENDOZA-ERMA S, MARILYN MENDOZA-ERMA S, MARILYN [facility] [id number] General acute hospital 2023-10-06 11:06:00 2023-10-06 11:06:00 Outpatient CLAUDIA KEYSHAWN LAITH [facility] [id number] [facility] 2023-09-10 00:00:00 2023-09-10 00:00:00 Nata Shipman, ENGINEER THIRD ASSISTANT: [address] [place] [address] , Ph. [facility] Gnosticism [facility] [phone] 83380 [facility] 2023-09-09 10:30:00 2023-09-09 10:30:00 Outpatient GM CHAWLA [facility] [id number] [facility] 2023-08-21 00:00:00 2023-08-21 00:00:00 Nata Shipman, ENGINEER THIRD ASSISTANT: [address] [place] [address] , Ph. [facility] Gnosticism [facility] Expansion [phone] 24131 [facility] 2023-08-12 00:00:00 2023-08-12 10:40:18 Letter (Out) Mariya Cobb [facility] 1..840.114 350.1.13.10 4.2.7.2.686 [id number] General acute hospital 2023-08-12 00:00:00 2023-08-12 00:00:00 Coretta Watts, ENGINEER THIRD ASSISTANT: [address] [place] [address] , Ph. [facility] Gnosticism [place] [address] [phone] [facility] Outreac [facility] Program 2023-08-08 10:30:00 2023-08-08 10:30:00 Outpatient R DALLIN S, MARILYN DALLIN S, MARILYN [facility] [id number] General acute hospital 2023-07-21 12:05:00 2023-07-21 13:50:00 Emergency ER RAFI ANDREWS [facility] [id number] [facility] 2023-07-07 00:00:00 2023-07-07 00:00:00 Mariya Cobb MD: [address], [address], [place] [address] , Ph. [phone] [facility] [phone] 0429 [facility] 2023-06-30 00:00:00 2023-06-30 00:00:00 Laith Andres MD: [address] [place] [address] , Ph. [facility] Gnosticism [facility] [phone] 69260 [facility] 2023-06-27 17:28:00 2023-06-27 19:00:00 Emergency ER SELINA TIWARI [facility] [id number] [facility] 2023-06-23 00:00:00 2023-06-23 00:00:00 Mariya Cobb MD: [address] [facility], [address], [place] [address] , Ph. [phone] [facility] [id number] 0415 [facility] 2023-06-20 00:00:00 2023-06-20 00:00:00 Outpatient G_Pappas [facility] [id number] 0412 [facility] 2023-06-17 00:00:00 2023-06-17 00:00:00 Outpatient G_Pappas [facility] [id number] 0409 [facility] 2023-06-16 00:00:00 2023-06-16 00:00:00 Outpatient G_Pappas [facility] [id number] 0408 [facility] 2023-06-12 00:00:00 2023-06-12 00:00:00 Laith Andres MD: [address] [place] [address] , Ph. [facility] Gnosticism [facility] [phone] [id number] [facility] 2023-06-04 00:00:00 2023-06-04 00:00:00 Paulette schreiber M.D.: [address], [place] [address] , Ph. [phone] [facility] Gnosticism [facility] [phone] [id number] [facility] 2023-06-03 00:00:00 2023-06-03 00:00:00 Outpatient LORETTA_CORETTA GRISSOM [facility] [id number] [facility] 2023-05-23 09:33:00 2023-05-23 09:33:00 Outpatient PAULETTE ACOSTA [facility] [id number] [facility] 2023-05-22 00:00:00 2023-05-22 00:00:00 Laith Andres MD: [address] [place] [address] , Ph. [facility] Gnosticism [facility] [id number] [facility] 2023-05-13 00:00:00 2023-05-13 00:00:00 Paulette schreiber MD: [address] [facility] [address], [place] [address] , Ph. [phone] [facility] Gnosticism [facility] movie projectionist [place] [id number] [facility] 2023-05-12 13:30:00 2023-05-12 13:49:30 Office Visit Gm Chawla 1.2.840.114 350.1.13.58 9.2.7.2.686 [id number] [facility] 2023 00:00:00 2023 00:00:00 Nata Shipman, ENGINEER THIRD ASSISTANT: [place] [address] , Ph. [facility] Gnosticism [facility] [id number] [facility] 2023-05-01 12:48:00 2023-05-01 12:48:00 Outpatient CLAUDIA OBRIENENIPAULETTE [facility] [id number] [facility] 2023-04-29 00:00:00 2023-04-29 00:00:00 Coretta Watts, ENGINEER THIRD ASSISTANT: [address] [place] [address] , Ph. [facility] Gnosticism [facility] 3 [id number] [facility] 2023-04-28 00:00:00 2023-04-28 00:00:00 Paulette schreiber MD: [address], [place] [address] , Ph. [phone] [facility] [place] [facility] [place] Gnosticism [facility] - [facility] movie projectionist [facility] [id number] [facility] 2023-04-22 18:24:00 2023-04-23 01:11:00 Emergency ER VICKI GIBRAN [facility] [id number] [facility] 2023-04-22 00:00:00 2023-04-22 00:00:00 Nata Shipman, ENGINEER THIRD ASSISTANT: [address], [place] [address] , Ph. [facility] [place] [facility] HOP - MEHOP Primary Expansion [id number] [facility] 2023-04-16 10:34:00 2023-04-16 13:24:00 Emergency ER Selina Tiwari [facility] [id number] [facility] 2023-04-15 19:50:00 2023-04-15 22:31:00 Emergency ER VICKI GIBRAN [facility] [id number] [facility] 2023-04-10 00:00:00 2023-04-10 00:00:00 Ting Soto, ENGINEER THIRD ASSISTANT: [address], [place] [address] , Ph. [facility] [place] [facility] HOP - MEHOP COASTAL/HARBOR DEFENSE OFFICER [id number] [facility] 2023-04-07 00:00:00 2023-04-07 00:00:00 Ting Soto, ENGINEER THIRD ASSISTANT: [address], [place] [address] , Ph. [facility] [place] [facility] [place] [facility] HOP - MEHOP COASTAL/HARBOR DEFENSE OFFICER [id number] [facility] 2023-03-26 00:00:00 2023-03-26 00:00:00 Coretta Watts ENGINEER THIRD ASSISTANT: [address] [place] [address] , [facility]. [facility] 3 [id number] [facility] 2023-01-13 08:00:00 2023-01-13 08:49:21 Office Visit Gm Chawla [id number] [facility] 2022-12-17 00:00:00 2022-12-17 00:00:00 Joellen Abarca MD: [address] [place] [id number] , Ph. [facility] Gnosticism [facility] [facility] [id number] [facility] 2022-12-09 00:00:00 2022-12-09 00:00:00 Coretta Watts ENGINEER THIRD ASSISTANT: [address] [address] , [facility]. [facility] [place] [address] [id number] [facility] 2022-10-02 00:00:00 2022-10-02 00:00:00 Coretta Watts ENGINEER THIRD ASSISTANT: [address] [place] [address] , [facility]. [facility] 3 [id number] [facility] 2022-08-12 00:00:00 2022-08-12 00:00:00 Basim Madrigal: [address] [address] , Ph. [facility] [place] [facility] [place] [facility] [facility] [id number] [facility] 2022-08-01 00:00:00 2022-08-01 00:00:00 Basim Madrigal: [address] [place] [address] , Ph. [facility] [id number] [facility] 2022-07-30 00:00:00 2022-07-30 00:00:00 Paulette Kirk MD: [id number], [place] [address] , Ph. [phone] [facility] [place] Gnosticism HOP - [facility] movie projectionist [place] [id number] [facility] 2022-07-21 07:48:00 2022-07-21 14:31:00 Emergency ER RAFI ANDREWS [facility] [id number] [facility] 2022-07-18 00:00:00 2022-07-18 00:00:00 Paulette Kirk MD: [address], [place] [address] , Ph. [phone] [facility] movie projectionist [place] [id number] [facility] 2022-07-10 00:00:00 2022-07-10 00:00:00 Basim Madrigal: [address] [place] [address] , Ph. [facility] [id number] [facility] 2022-07-09 10:22:00 2022-07-09 13:38:00 Emergency ER Selina Tiwari [facility] [id number] [facility] 2022-07-09 10:22:00 2022-07-09 13:38:00 emergency [id number] 2022-07-01 00:00:00 2022-07-01 00:00:00 Ting Soto, ENGINEER THIRD ASSISTANT: Michelle Turner, [place] [address] , Ph. [facility] Gnosticism [facility] [address] COASTAL/[employer] DEFENSE OFFICER [id number] [facility] 2022-06-18 12:00:00 2022-06-18 12:00:00 Outpatient ZACK SUTTON [facility] [id number] [facility] 2022-06-04 15:00:00 2022-06-04 15:28:20 Office Visit Zack Sutton [facility] [address] [facility] [id number] [facility] 2022-06-03 13:04:00 2022-06-03 15:45:00 Emergency ER BASSAM WADE [facility] [id number] [facility] 2022-06-03 13:04:00 2022-06-03 15:45:00 emergency [id number] 2022-05-20 00:00:00 2022-05-20 00:00:00 Basim Madrigal: [place] [address] , Ph. [facility] Gnosticism [facility] [id number] [facility] 2022-05-07 14:00:00 2022-05-07 14:00:00 Outpatient ZACK SUTTON [facility] [id number] [facility] 2022-03-22 16:00:00 2022-03-22 16:00:00 Ambulatory Pre-Reg [facility] [place] [id number] Brea Cruzann 2022-03-14 00:00:00 2022-03-14 00:00:00 Laith Andres MD: [address], [address], [place] [address] , Ph. [facility] Gnosticism [facility] [id number] [facility] 2022-02-25 08:00:00 2022-02-25 08:00:00 Outpatient GM CHAWLA [facility] [id number] [facility] 2022-01-28 00:00:00 2022-01-28 00:00:00 Basim Madrigal: [address] [place] [address] , Ph. [facility] [id number] [facility] 2021-12-04 00:00:00 2021-12-04 00:00:00 Basim Madrigal: [address] [place] [address] , Ph. [facility] [id number] [facility] 2021-11-22 00:00:00 2021-11-22 00:00:00 Laith Andres MD: [address], [address], [place] [address] , Ph. [facility] [id number] [facility] 2021-11-21 09:15:00 2021-11-21 11:00:00 Emergency ER BASSAM WADE [facility] [id number] [facility] 2021-11-21 09:15:00 2021-11-21 11:00:00 Outpatient [facility] [id number] 2021-08-16 09:30:00 2021-08-16 09:30:00 Outpatient BOWEN CONNOR [facility] [id number] General acute hospital 2021-07-13 12:53:00 2021-07-13 23:59:00 Outpatient EUGENIE PALACIOS [facility] [id number] General acute hospital 2021-07-13 12:53:00 2021-07-13 23:59:00 Hospital Encounter Eugenie Gandara [facility] [id number] 350.1.13.10 [id number] [id number] General acute hospital 2021-06-18 10:55:00 2021-06-18 10:55:00 Outpatient BASIM BRIGHT [facility] [id number] [facility] 2021-05-29 08:00:00 2021-05-29 08:00:00 Outpatient EUGENIE PALACIOS [facility] [id number] General acute hospital 2021-05-18 00:00:00 2021-05-18 00:00:00 Telephone Syed Garciaig [facility] MED[facility] OFFICE BUILDING [id number] [id number] [id number] [id number] General acute hospital 2021-05-14 16:15:00 2021-05-14 16:34:37 Outpatient R MAITE GARCIA [facility] [id number] General acute hospital 2021-05-14 16:15:00 2021-05-14 16:34:37 Office Visit Syed Garciaig [facility] MED[facility] OFF[facility] BUILDING [id number] 350.1.13.10 [id number] [id number] General acute hospital 2021-05-14 16:15:00 2021-05-14 16:34:37 Outpatient MAITE JOHNSON [facility] [id number] General acute hospital 2021-05-04 00:00:00 2021-05-04 00:00:00 Orders Only Doctor Unassigned, [place] [facility] [id number] 350.1.13.10 [id number] [id number] General acute hospital 2021-04-26 08:15:00 2021-04-26 08:15:00 Outpatient MAITE JOHNSON [facility] [id number] General acute hospital 2021-04-06 11:15:00 2021-04-06 11:32:01 Outpatient MAITE JOHNSON [facility] [id number] General acute hospital 2021-04-06 11:15:00 2021-04-06 11:32:01 Office Visit Maite Garcia [facility] [id number] [id number] [id number] [id number] General acute hospital 2021-04-06 11:15:00 2021-04-06 11:15:00 Outpatient MAITE JOHNSON [facility] [id number] General acute hospital 2021-03-01 15:09:00 2021-03-01 21:15:00 Emergency EM Melo Villa [id number] [facility] are [facility] 2021-02-09 10:47:00 2021-02-09 16:21:00 Emergency EM America Nagel [id number] [facility] are [facility] Results Test Description Test Time Test Comments Results Result Co mments Source [facility] ProgramVaginal pathogens panel - Vaginal fluid by BONNIE with probe [id number] 00:00:00* Test Item Value Reference Range Interpretation Comme nts Atopobium vaginae DNA [Prese nce] in Vaginal fluid by BONNIE with probe detection (test code = 00264-8) Low - 0 Bacterial vaginosis associat ed bacterium 2 DNA [Presence] in Vaginal fluid by BONNIE with probe detection (test code = 09780-0) Low - 0 Megasphaera sp type 1 DNA [P resence] in Vaginal fluid by BONNIE with probe detection (test code = 54024-5) Low - 0 Pérez albicans DNA [Presen ce] in Vaginal fluid by BONNIE with probe detection (test code = 60939-1) Negative negative Pérez glabrata DNA [Presen ce] in Vaginal fluid by BONNIE with probe detection (test code = 60264-9) Negative negative Trichomonas vaginalis DNA [P resence] in Vaginal fluid by BONNIE with probe detection (test code = 97304-6) Negative negative Chlamydia trachomatis DNA [P resence] in Specimen by BONNIE with probe detection (test code = 89491-3) Negative negative Neisseria gonorrhoeae DNA [P resence] in Vaginal fluid by BONNIE with probe detection (test code = 94721-8) Negative negative [facility] Outreach Programurinalysis, [id number] 11:08:14* Test Item Value Reference Range Interpretation Comme nts Leukocytes (test code = Leukocytes) - Nitrite (test code = Nitrite) - Urobilinogen (test code = Urobilinogen) - Protein (test code = Protein) - pH (test code = pH) 6.0 Blood (test code = Blood) - Specific [place] (test code = Specific [place]) 1.020 Ketone (test code = Ketone) - Bilirubin (test code = Bilirubin) - Glucose (test code = Glucose) - Appearance (test code = Appearance) clear Color (test code = Color) yellow [facility] Outreach ProgramBacteria identified in Urine by [id number] 00:00:00* Test Item Value Reference Range Interpretation Comme nts Bacteria identified in Urine by Culture (test code = 630-4) No growth [facility] Programurinalysis, [id number] 16:11:46* Test Item Value Reference Range Interpretation Comme nts Leukocytes (test code = Leukocytes) - Nitrite (test code = Nitrite) - Urobilinogen (test code = Urobilinogen) - Protein (test code = Protein) - pH (test code = pH) 6.0 Blood (test code = Blood) - Specific [place] (test code = Specific [place]) 1.025 Ketone (test code = Ketone) - Bilirubin (test code = Bilirubin) - Glucose (test code = Glucose) - Appearance (test code = Appearance) clear Color (test code = Color) yellow [facility], [id number] 14:39:15* Test Item Value Reference Range Interpretation Comme nts Leukocytes (test code = Leukocytes) - Nitrite (test code = Nitrite) - Urobilinogen (test code = Urobilinogen) - Protein (test code = Protein) - pH (test code = pH) 6.0 Blood (test code = Blood) - Specific [place] (test code = Specific [place]) 1.020 Ketone (test code = Ketone) - Bilirubin (test code = Bilirubin) - Glucose (test code = Glucose) - Appearance (test code = Appearance) clear Color (test code = Color) yellow [facility] ProgramPOCT Urinalysis w/o Specific [place] 2024-09-24 18:31:00* Test Item Value Reference Range Interpretation Comme nts POCT PH U (test code = 3254) 5 mg/dl 5-8 POCT U LEUK EST (test code = 3263) negative Negative - Negative POCT U NIT (test code = 3262) negative Negative - Negati ve POCT U PROT (test code = 3259) trace Negative - Negat nitza POCT U GLU (test code = 3256) negative Negative - Negati ve POCT U KETONE (test code = 3258) negative Negative - Neg ative POCT U BLD (test code = 3257) negative Negative - Negati ve [facility] HospitalVaginal pathogens panel - Vaginal fluid by BONNIE with probe [id number] 00:00:00* Test Item Value Reference Range Interpretation Comme nts Atopobium vaginae DNA [Prese nce] in Vaginal fluid by BONNIE with probe detection (test code = 80858-9) Low - 0 Bacterial vaginosis associat ed bacterium 2 DNA [Presence] in Vaginal fluid by BONNIE with probe detection (test code = 59619-0) Low - 0 Megasphaera sp type 1 DNA [P resence] in Vaginal fluid by BONNIE with probe detection (test code = 25269-5) Low - 0 Pérez albicans DNA [Presen ce] in Vaginal fluid by BONNIE with probe detection (test code = 14191-2) Negative negative Pérez glabrata DNA [Presen ce] in Vaginal fluid by BONNIE with probe detection (test code = 44527-0) Negative negative Trichomonas vaginalis DNA [P resence] in Vaginal fluid by BONNIE with probe detection (test code = 06980-9) Negative negative Chlamydia trachomatis DNA [P resence] in Specimen by BONNIE with probe detection (test code = 55790-0) Negative negative Neisseria gonorrhoeae DNA [P resence] in Vaginal fluid by BONNIE with probe detection (test code = 95027-4) Negative negative [facility] Outreach Programurinalysis, [id number] 11:24:00* Test Item Value Reference Range Interpretation Comme nts Leukocytes (test code = Leukocytes) - Nitrite (test code = Nitrite) - Urobilinogen (test code = Urobilinogen) - Protein (test code = Protein) - pH (test code = pH) 6.0 Blood (test code = Blood) - Specific [place] (test code = Specific [place]) 1.015 Ketone (test code = Ketone) - Bilirubin (test code = Bilirubin) - Glucose (test code = Glucose) - Appearance (test code = Appearance) clear Color (test code = Color) yellow [facility] ProgramMicroscopic observation [Identifier] in Vaginal fluid by Wet [id number] 14:20:00* Test Item Value Reference Range Interpretation Comme nts Clue Cells (test code = Clue Cells) negative WBCs (test code = WBCs) negative Trichomonads (test code = Trichomonads) negative Epithelial cells (test code = Epithelial cells) normal RBCs (test code = RBCs) negative [facility]uclear Ab [Presence] in [id number] 00:00:00* Test Item Value Reference Range Interpretation Comme nts Nuclear Ab [Presence] in Ser um (test code = 8061-4) Negative negative [place] [facility] ProgramCobalamin (Vitamin B12) and folate panel - [id number] 00:00:00* Test Item Value Reference Range Interpretation Comme nts Cobalamin (Vitamin B12) [Mass/volume] in Serum or Plasma (test code = 2132-9) 881 pg/mL 232-1245 Folate [Mass/volume] in Seru m or Plasma (test code = 2284-8) 11.0 NG/mL >3.0 [facility] CenterRheumatoid factor [Units/volume] in Serum or [id number] 00:00:00* Test Item Value Reference Range Interpretation Comme nts Rheumatoid factor [Units/vol ume] in Serum or Plasma (test code = 23784-2) <10.0 <14.0 [facility]25-Hydroxyvitamin D3+25- Hydroxyvitamin D2 [Mass/volume] in Serum or [id number] 00:00:00* Test Item Value Reference Range Interpretation Comme nts 25-Hydroxyvitamin D3+25-Hydroxyvitamin D2 [Mass/volume] in Serum or Plasma (test code = 74804-9) 32.6 NG/mL 30.0-100.0 [facility] CenterErythrocyte sedimentation rate [Velocity] in Red Blood [id number] 00:00:00* Test Item Value Reference Range Interpretation Comme nts Erythrocyte sedimentation ra te [Velocity] in Red Blood Cells by Westergren method (test code = 4537-7) 65 mm/HR 0-32 H [facility] Center[facility] reactive protein [Mass/volume] in Serum or [id number] 00:00:00* Test Item Value Reference Range Interpretation Comme nts C reactive protein [Mass/vol ume] in Serum or Plasma (test code = 1988-5) 5 mg/L 0-10 [facility] CenterCT + NG + TV, DNA, urine/swab 2024-08-14 00:00:00* Test Item Value Reference Range Interpretation Comme nts pérez - swab (test code = pérez - swab) Normal gardnerella (test code = gardnerella) Abnormal A CT/NG (test code = CT/NG) Normal trichomonas vaginalis addon - swab (test code = trichomonas vaginalis addon - swab) Normal [facility] Center[facility]sc[facility] observation [Identifier] in Vaginal fluid by Wet [id number] 09:37:38* Test Item Value Reference Range Interpretation Comme nts Clue Cells (test code = Clue Cells) negative WBCs (test code = WBCs) positive Trichomonads (test code = Trichomonads) negative Epithelial cells (test code = Epithelial cells) normal RBCs (test code = RBCs) negative [facility] Center[facility]ysis, [id number] 09:14:54* Test Item Value Reference Range Interpretation Comme nts Leukocytes (test code = Leukocytes) Negative Nitrite (test code = Nitrite) negative Urobilinogen (test code = Urobilinogen) .2 Protein (test code = Protein) Negative pH (test code = pH) 6.0 Blood (test code = Blood) Non-Hemolyzed: Trace Specific [place] (test code = Specific [place]) 1.020 Ketone (test code = Ketone) Negative Bilirubin (test code = Bilirubin) Negative Glucose (test code = Glucose) Negative Appearance (test code = Appearance) Clear Color (test code = Color) Yellow [facility] Center[facility] + TIBC + ferritin, [id number] 00:00:00* Test Item Value Reference Range Interpretation Comme nts Iron binding capacity [Mass/ volume] in Serum or Plasma (test code = 2500-7) 382 ug/dL 250-450 Iron binding capacity.unsatu rated [Mass/volume] in Serum or Plasma (test code = 2501-5) 322 ug/dL 131-425 Iron [Mass/volume] in Serum or Plasma (test code = 2498-4) 60 ug/dL 27-159 Iron saturation [Mass Fracti on] in Serum or Plasma (test code = 2502-3) 16 % 15-55 Ferritin [Mass/volume] in Se rum or Plasma (test code = 2276-4) 28 NG/mL 15-150 [facility] Outreach ProgramFree T4 and TSH panel - Serum or [id number] 00:00:00* Test Item Value Reference Range Interpretation Comme nts Thyrotropin [Units/volume] i n Serum or Plasma by Detection limit <= 0.005 mIU/L (test code = 00656-1) 1.200 uIU/mL 0.450-4.500 Thyroxine (T4) free [Mass/volume] in Serum or Plasma (test code = 3024-7) 1.22 NG/dL 0.82-1.77 [facility] W Auto Differential panel - Blood 2024-06-24 00:00:00* Test Item Value Reference Range Interpretation Comme nts Leukocytes [#/volume] in Blo od by Automated count (test code = 6690-2) 7.7 x10e3/uL 3.4-10.8 Erythrocytes [#/volume] in Blood by Automated count (test code = 789-8) 4.58 x10e6/uL 3.77-5.28 Hemoglobin [Mass/volume] in Blood (test code = 718-7) 12.3 g/dL 11.1-15.9 Hematocrit [Volume Fraction] of Blood by Automated count (test code = 4544-3) 38.4 % 34.0-46.6 MCV [Entitic mean volume] in Red Blood Cells by Automated count (test code = 787-2) 84 fL 79-97 MCH [Entitic mass] by Automa yo count (test code = 785-6) 26.9 pg 26.6-33.0 MCHC [Entitic Mass/volume] i n Red Blood Cells by Automated count (test code = 786-4) 32.0 g/dL 31.5-35.7 Erythrocyte [DistWidth] in R ed Blood Cells by Automated count (test code = 788-0) 13.8 % 11.7-15.4 Platelets [#/volume] in Bloo d by Automated count (test code = 777-3) 469 x10e3/uL 150-450 H Neutrophils/Leukocytes in Bl ood by Automated count (test code = 770-8) 63 % not estab. Lymphocytes/100 leukocytes i n Blood by Automated count (test code = 736-9) 30 % not estab. Monocytes/Leukocytes in Bloo d by Automated count (test code = 5905-5) 5 % not estab. Eosinophils/100 leukocytes i n Blood by Automated count (test code = 713-8) 2 % not estab. Basophils/Leukocytes in Bloo d by Automated count (test code = 706-2) 0 % not estab. immature cells (test code = immature cells) ENGINEER THIRD ASSISTANT Neutrophils [#/volume] in Bl ood by Automated count (test code = 751-8) 4.8 x10e3/uL 1.4-7.0 Lymphocytes [#/volume] in Bl ood by Automated count (test code = 731-0) 2.3 x10e3/uL 0.7-3.1 Monocytes [#/volume] in Bloo d by Automated count (test code = 742-7) 0.4 x10e3/uL 0.1-0.9 Eosinophils [#/volume] in Bl ood by Automated count (test code = 711-2) 0.2 x10e3/uL 0.0-0.4 Basophils [#/volume] in Bloo d by Automated count (test code = 704-7) 0.0 x10e3/uL 0.0-0.2 Immature granulocytes/Leukocytes in Blood by Automated count (test code = 72869-1) 0 % not estab. Immature granulocytes [#/volume] in Blood by Automated count (test code = 39498-9) 0.0 x10e3/uL 0.0-0.1 Nucleated erythrocytes/Leukocytes [Ratio] in Blood by Automated count (test code = 42561-8) ENGINEER THIRD ASSISTANT Morphology [Interpretation] in Blood Narrative (test code = 05126-6) ENGINEER THIRD ASSISTANT [facility] ProgramComprehensive metabolic 2000 panel - Serum or [id number] 00:00:00* Test Item Value Reference Range Interpretation Comme nts Glucose [Mass/volume] in Serum or Plasma (test code = 2345-7) 80 mg/dL 70-99 Urea nitrogen [Mass/volume] in Serum or Plasma (test code = 3094-0) 8 mg/dL 6-20 Creatinine [Mass/volume] in Serum or Plasma (test code = 2160-0) 0.73 mg/dL 0.57-1.00 Glomerular filtration rate [Volume Rate/Area] in Serum, Plasma or Blood by Creatinine-based formula (CKD-EPI 2020)/1.73 sq M (test code = 88024-5) 108 mL/min/1.73 >59 Urea nitrogen/Creatinine [Mass Ratio] in Serum or Plasma (test code = 3097-3) 11 9-23 Sodium [Moles/volume] in Serum or Plasma (test code = 2951-2) 137 mmol/L 134-144 Potassium [Moles/volume] in Serum or Plasma (test code = 2823-3) 4.6 mmol/L 3.5-5.2 Chloride [Moles/volume] in Serum or Plasma (test code = 2074-0) 102 mmol/L 96-106 Carbon dioxide, total [Moles/volume] in Serum or Plasma (test code = 2027-) 22 mmol/L 20-29 Calcium [Mass/volume] in Serum or Plasma (test code = 33249-3) 9.5 mg/dL 8.7-10.2 Protein [Mass/volume] in Serum or Plasma (test code = 2885-2) 7.4 g/dL 6.0-8.5 Albumin [Mass/volume] in Serum or Plasma (test code = 1751-7) 4.5 g/dL 3.9-4.9 Globulin [Mass/volume] in Serum by calculation (test code = 14978-7) 2.9 g/dL 1.5-4.5 Bilirubin.total [Mass/volume ] in Serum or Plasma (test code = 1974-) 0.3 mg/dL 0.0-1.2 Alkaline phosphatase [Enzymatic activity/volume] in Serum or Plasma (test code = 6768-6) 68 IU/L 44-121 Aspartate aminotransferase [Enzymatic activity/volume] in Serum or Plasma (test code = 1920-8) 17 IU/L 0-40 Alanine aminotransferase [Enzymatic activity/volume] in Serum or Plasma (test code = 1742-6) 16 IU/L 0-32 [facility] ProgramLipid 1996 panel - Serum or Plasma 2024-06-24 00:00:00* Test Item Value Reference Range Interpretation Comme nts Cholesterol [Mass/volume] in Serum or Plasma (test code = 2092-3) 179 mg/dL 100-199 Triglyceride [Mass/volume] i n Serum or Plasma (test code = 2571-8) 57 mg/dL 0-149 Cholesterol in HDL [Mass/vol ume] in Serum or Plasma (test code = 2084-9) 57 mg/dL >39 Cholesterol in VLDL [Mass/vo lume] in Serum or Plasma by calculation (test code = 71894-1) 11 mg/dL 5-40 Cholesterol in LDL [Mass/vol ume] in Serum or Plasma by calculation (test code = 04749-2) 111 mg/dL 0-99 H LDL calc comment: (test code = LDL calc comment:) ENGINEER THIRD ASSISTANT [facility] CenterHemoglobin A1c/Hemoglobin.total in [id number] 00:00:00* Test Item Value Reference Range Interpretation Comme nts Hemoglobin A1c/Hemoglobin.to corin in Blood (test code = 4548-4) 5.3 % 4.8-5.6 Glucose mean value [Mass/vol ume] in Blood Estimated from glycated hemoglobin (test code = 54883-3) 105 mg/dL [facility]25-Hydroxyvitamin D3+25- Hydroxyvitamin D2 [Mass/volume] in Serum or [id number] 00:00:00* Test Item Value Reference Range Interpretation Comme nts 25-Hydroxyvitamin D3+25-Hydroxyvitamin D2 [Mass/volume] in Serum or Plasma (test code = 12642-8) 22.9 NG/mL 30.0-100.0 L [facility] CenterTriiodothyronine (T3) Free [Mass/volume] in Serum or [id number] 00:00:00* Test Item Value Reference Range Interpretation Comme nts Triiodothyronine (T3) Free [Mass/volume] in Serum or Plasma (test code = 3051-0) 3.0 pg/mL 2.0-4.4 [facility] Centercardiovascular dawitz2520-12-22 00:00:00* Test Item Value Reference Range Interpretation Comme nts Interpretation and review of laboratory results (test code = 77788-3) Note [facility] Centerurinalysis, [id number] 11:25:00* Test Item Value Reference Range Interpretation Comme nts Leukocytes (test code = Leukocytes) neg Nitrite (test code = Nitrite) neg Urobilinogen (test code = Urobilinogen) 3.5 Protein (test code = Protein) neg pH (test code = pH) 6.5 Blood (test code = Blood) neg Specific [place] (test code = Specific [place]) 1.015 Ketone (test code = Ketone) neg Bilirubin (test code = Bilirubin) neg Glucose (test code = Glucose) neg Appearance (test code = Appearance) clear Color (test code = Color) yellow [facility] Center[facility]ious disease [id number] 00:00:00* Test Item Value Reference Range Interpretation Comme nts adenovirus F40/41 (test code = adenovirus F40/41) 0.000 ppm 23.000-31.553 campylobacter coli, jejuni, upsaliensis (test code = campylobacter coli, jejuni, upsaliensis) 0.000 ppm 23.000-31.921 enteroaggregative E. coli (e aec) (test code = enteroaggregative E. coli (eaec)) 0.000 ppm 19.691-24.689 enteroinvasive E. coli (eiec ) / shigella spp. (test code = enteroinvasive E. coli (eiec) / shigella spp.) 0.000 ppm 19.691-24.689 enteropathogenic E. coli (ep ec) (test code = enteropathogenic E. coli (epec)) 0.000 ppm 19.691-24.689 enterotoxigenic E. coli (ete c) (test code = enterotoxigenic E. coli (etec)) 0.000 ppm 19.691-24.689 norovirus (genogroup 1, 2) (g_norovirus_g1_3) (test code = norovirus (genogroup 1, 2) (g_norovirus_g1_3)) 0.000 ppm 23.000-30.935 rotavirus A (test code = rot avirus A) 0.000 ppm 23.000-33.204 salmonella (test code = salmonella) 0.000 ppm 23.000-30.9 07 shiga toxin-producing E. col i (stec) (test code = shiga toxin-producing E. coli (stec)) 0.000 ppm 19.691-24.689 shiga toxin- producing E. co li O157 (stec O157) (test code = shiga toxin- producing E. coli O157 (stec O157)) 0.000 ppm 19.691-24.689 cryptosporidium (test code = cryptosporidium) 0.000 ppm 23.000-32.185 cyclospora cayetanensis (shankar t code = cyclospora cayetanensis) 0.000 ppm 23.000-31.181 dientamoeba fragilis (test c ode = dientamoeba fragilis) 0.000 ppm 23.000-32.927 entamoeba histolytica (test code = entamoeba histolytica) 0.000 ppm 23.000-31.749 giardia intestinalis (test c ode = giardia intestinalis) 0.000 ppm 23.000-32.603 microsporidium (enterocytozo on bieneusi, encephalitozoon intestinalis) (test code = microsporidium (enterocytozoon bieneusi, encephalitozoon intestinalis)) 0.000 ppm 23.000-32.115 [facility] ProgramVaginal pathogens panel - Vaginal fluid by BONNIE with probe [id number] 00:00:00* Test Item Value Reference Range Interpretation Comme nts Atopobium vaginae DNA [Prese nce] in Vaginal fluid by BONNIE with probe detection (test code = 23888-9) Low - 0 Bacterial vaginosis associat ed bacterium 2 DNA [Presence] in Vaginal fluid by BONNIE with probe detection (test code = 81625-7) Low - 0 Megasphaera sp type 1 DNA [P resence] in Vaginal fluid by BONNIE with probe detection (test code = 21599-1) Low - 0 Pérez albicans DNA [Presen ce] in Vaginal fluid by BONNIE with probe detection (test code = 51330-0) Negative negative Pérez glabrata DNA [Presen ce] in Vaginal fluid by BONNEI with probe detection (test code = 43355-2) Negative negative Trichomonas vaginalis DNA [P resence] in Vaginal fluid by BONNIE with probe detection (test code = 03630-5) Negative negative Chlamydia trachomatis DNA [P resence] in Specimen by BONNIE with probe detection (test code = 81436-6) Negative negative Neisseria gonorrhoeae DNA [P resence] in Vaginal fluid by BONNIE with probe detection (test code = 31666-0) Negative negative [facility] Out[facility] Programplease [id number] 00:00:00* Test Item Value Reference Range Interpretation Comme [facility] please note (test code = please note) Comment [facility], [id number] 14:55:00* Test Item Value Reference Range Interpretation Comme nts Leukocytes (test code = Leukocytes) - Nitrite (test code = Nitrite) - Urobilinogen (test code = Urobilinogen) - Protein (test code = Protein) - pH (test code = pH) 6.5 Blood (test code = Blood) - Specific [place] (test code = Specific [place]) 1.015 Ketone (test code = Ketone) - Bilirubin (test code = Bilirubin) - Glucose (test code = Glucose) - Appearance (test code = Appearance) clear Color (test code = Color) yellow [facility] [id number] 17:40:28Ordered by an unspecified provider.[facility] POCT [id number] 17:42:00* Test Item Value Reference Range Interpretation Comme [facility] POCT PREG (test code = 1605) Negative On board controls acceptable with C Line (test code = 3574) Yes POCT PREG LOT # (test code = 3575) POCT PREG TEST DATE ( test code = 3576) [facility]inal[facility] w/o Specific [id number] 17:34:00* Test Item Value Reference Range Interpretation Comme [facility] POCT PH U (test code = 3254) 5 mg/dl 5-8 POCT U LEUK EST (test code = 3263) negative Negative - Negative POCT U NIT (test code = 3262) negative Negative - Negati ve POCT U PROT (test code = 3259) negative Negative - Negat nitza POCT U GLU (test code = 3256) negative Negative - Negati ve POCT U KETONE (test code = 3258) negative Negative - Neg ative POCT U BLD (test code = 3257) negative Negative - Negati ve [facility] HospitalMicroscopic observation [Identifier] in Vaginal fluid by Wet hxlxscvuvcp9377-73-25 11:07:05* Test Item Value Reference Range Interpretation Comme nts Clue Cells (test code = Clue Cells) negative WBCs (test code = WBCs) positive Trichomonads (test code = Trichomonads) negative Epithelial cells (test code = Epithelial cells) normal RBCs (test code = RBCs) positive [facility] pres id [id number] 08:55:00* Test Item Value Reference Range Interpretation Comme nts culture,urine (test code = culture,urine) SCANT SKIN PAOLA PRESENT. PATHOGEN NOT PRESENT AT [address] [facility] GroupBacteria identified in Urine by [id number] 09:23:00* Test Item Value Reference Range Interpretation Comme nts culture,urine (test code = culture,urine) NO GROWTH AFTER [address] [facility] GroupCT + NG + TV, DNA, urine/[id number] 00:00:00* Test Item Value Reference Range Interpretation Comme nts pérez - swab (test code = pérez - swab) Normal gardnerella (test code = gardnerella) Abnormal A CT/NG (test code = CT/NG) Normal trichomonas vaginalis addon - swab (test code = trichomonas vaginalis addon - swab) Normal [facility] CenterMicroscopic observation [Identifier] in Vaginal fluid by Wet cbfzxfeqhcx0876-04-52 15:44:44* Test Item Value Reference Range Interpretation Comme nts Clue Cells (test code = Clue Cells) negative WBCs (test code = WBCs) negative Trichomonads (test code = Trichomonads) negative Epithelial cells (test code = Epithelial cells) normal RBCs (test code = RBCs) negative [facility], [id number] 15:31:08* Test Item Value Reference Range Interpretation Comme nts Leukocytes (test code = Leukocytes) Negative Nitrite (test code = Nitrite) negative Urobilinogen (test code = Urobilinogen) .2 Protein (test code = Protein) 30 pH (test code = pH) 5.5 Blood (test code = Blood) Negative Specific [place] (test code = Specific [place]) 1.030 Ketone (test code = Ketone) Trace Bilirubin (test code = Bilirubin) Negative Glucose (test code = Glucose) Negative Appearance (test code = Appearance) Clear Color (test code = Color) Yellow [facility], [id number] 13:53:00* Test Item Value Reference Range Interpretation Comme nts Leukocytes (test code = Leukocytes) - Nitrite (test code = Nitrite) - Urobilinogen (test code = Urobilinogen) - Protein (test code = Protein) - pH (test code = pH) 6.0 Blood (test code = Blood) - Specific [place] (test code = Specific [place]) 1.030 Ketone (test code = Ketone) - Bilirubin (test code = Bilirubin) - Glucose (test code = Glucose) - Appearance (test code = Appearance) clear Color (test code = Color) dark yellow [facility] Centerrap[facility] group A, [id number] 13:36:15* Test Item Value Reference Range Interpretation Comme nts Strep (test code = Strep) negative [facility] Centeriron + TIBC + ferritin, serum 2024-02-19 00:00:00* Test Item Value Reference Range Interpretation Comme nts Iron binding capacity [Mass/ volume] in Serum or Plasma (test code = 2500-7) 404 ug/dL 250-450 Iron binding capacity.unsatu rated [Mass/volume] in Serum or Plasma (test code = 2501-5) 374 ug/dL 131-425 Iron [Mass/volume] in Serum or Plasma (test code = 2498-4) 30 ug/dL 27-159 Iron saturation [Mass Fracti on] in Serum or Plasma (test code = 2502-3) 7 % 15-55 L Ferritin [Mass/volume] in Se rum or Plasma (test code = 2276-4) 12 NG/mL 15-150 L [facility] CenterFree T4 and TSH panel - Serum or [id number] 00:00:00* Test Item Value Reference Range Interpretation Comme nts Thyrotropin [Units/volume] i n Serum or Plasma by Detection limit <= 0.005 mIU/L (test code = 66053-8) 1.250 uIU/mL 0.450-4.500 Thyroxine (T4) free [Mass/volume] in Serum or Plasma (test code = 3024-7) 1.09 NG/dL 0.82-1.77 [facility] CenterCBC W Auto Differential panel - Blood 2024-02-19 00:00:00* Test Item Value Reference Range Interpretation Comme nts Leukocytes [#/volume] in Blo od by Automated count (test code = 6690-2) 7.5 x10e3/uL 3.4-10.8 Erythrocytes [#/volume] in Blood by Automated count (test code = 789-8) 4.48 x10e6/uL 3.77-5.28 Hemoglobin [Mass/volume] in Blood (test code = 718-7) 11.6 g/dL 11.1-15.9 Hematocrit [Volume Fraction] of Blood by Automated count (test code = 4544-3) 36.6 % 34.0-46.6 MCV [Entitic volume] by Automated count (test code = 787-2) 82 fL 79-97 MCH [Entitic mass] by Automa yo count (test code = 785-6) 25.9 pg 26.6-33.0 L MCHC [Mass/volume] by Automa yo count (test code = 786-4) 31.7 g/dL 31.5-35.7 Erythrocyte distribution wid th [Ratio] by Automated count (test code = 788-0) 13.9 % 11.7-15.4 Platelets [#/volume] in Bloo d by Automated count (test code = 777-3) 423 x10e3/uL 150-450 Neutrophils/100 leukocytes i n Blood by Automated count (test code = 770-8) 51 % not estab. Lymphocytes/100 leukocytes i n Blood by Automated count (test code = 736-9) 37 % not estab. Monocytes/100 leukocytes in Blood by Automated count (test code = 5905-5) 8 % not estab. Eosinophils/100 leukocytes i n Blood by Automated count (test code = 713-8) 3 % not estab. Basophils/100 leukocytes in Blood by Automated count (test code = 706-2) 1 % not estab. immature cells (test code = immature cells) ENGINEER THIRD ASSISTANT Neutrophils [#/volume] in Bl ood by Automated count (test code = 751-8) 3.9 x10e3/uL 1.4-7.0 Lymphocytes [#/volume] in Bl ood by Automated count (test code = 731-0) 2.7 x10e3/uL 0.7-3.1 Monocytes [#/volume] in Bloo d by Automated count (test code = 742-7) 0.6 x10e3/uL 0.1-0.9 Eosinophils [#/volume] in Bl ood by Automated count (test code = 711-2) 0.2 x10e3/uL 0.0-0.4 Basophils [#/volume] in Bloo d by Automated count (test code = 704-7) 0.0 x10e3/uL 0.0-0.2 Immature granulocytes/100 leukocytes in Blood by Automated count (test code = 48743-0) 0 % not estab. Immature granulocytes [#/volume] in Blood by Automated count (test code = 05075-1) 0.0 x10e3/uL 0.0-0.1 Nucleated erythrocytes/100 leukocytes [Ratio] in Blood by Automated count (test code = 82755-1) ENGINEER THIRD ASSISTANT Morphology [Interpretation] in Blood Narrative (test code = 84568-8) ENGINEER THIRD ASSISTANT [facility] ProgramComprehensive metabolic 2000 panel - Serum or Fejlau1410-00-48 00:00:00* Test Item Value Reference Range Interpretation Comme nts Glucose [Mass/volume] in Ser um or Plasma (test code = 2345-7) 67 mg/dL 70-99 L Urea nitrogen [Mass/volume] in Serum or Plasma (test code = 3094-0) 14 mg/dL 6-20 Creatinine [Mass/volume] in Serum or Plasma (test code = 2160-0) 0.86 mg/dL 0.57-1.00 Glomerular filtration rate/1.73 sq M.predicted [Volume Rate/Area] in Serum, Plasma or Blood by Creatinine-based formula (CKD-EPI 2020) (test code = 41352-8) 89 mL/min/1.73 >59 Urea nitrogen/Creatinine [Ma ss Ratio] in Serum or Plasma (test code = 3097-3) 16 9-23 Sodium [Moles/volume] in Ser um or Plasma (test code = 2951-2) 140 mmol/L 134-144 Potassium [Moles/volume] in Serum or Plasma (test code = 2823-3) 4.7 mmol/L 3.5-5.2 Chloride [Moles/volume] in Serum or Plasma (test code = 2075-0) 104 mmol/L 96-106 Carbon dioxide, total [Moles/volume] in Serum or Plasma (test code = 2027-9) 22 mmol/L 20-29 Calcium [Mass/volume] in Ser um or Plasma (test code = 62477-5) 9.3 mg/dL 8.7-10.2 Protein [Mass/volume] in Ser um or Plasma (test code = 2885-2) 7.4 g/dL 6.0-8.5 Albumin [Mass/volume] in Ser um or Plasma (test code = 1751-7) 4.2 g/dL 3.9-4.9 Globulin [Mass/volume] in Serum by calculation (test code = 69702-6) 3.2 g/dL 1.5-4.5 Bilirubin.total [Mass/volume ] in Serum or Plasma (test code = 1974-) <0.2 0.0-1.2 Alkaline phosphatase [Enzymatic activity/volume] in Serum or Plasma (test code = 6768-6) 68 IU/L 44-121 Aspartate aminotransferase [Enzymatic activity/volume] in Serum or Plasma (test code = 1920-8) 18 IU/L 0-40 Alanine aminotransferase [Enzymatic activity/volume] in Serum or Plasma (test code = 1742-6) 10 IU/L 0-32 [facility] CenterHemoglobin A1c/Hemoglobin.total in [id number] 00:00:00* Test Item Value Reference Range Interpretation Comme nts Hemoglobin A1c/Hemoglobin.to corin in Blood (test code = 4548-4) 5.5 % 4.8-5.6 [facility]25-Hydroxyvitamin D3+25- Hydroxyvitamin D2 [Mass/volume] in Serum or [id number] 00:00:00* Test Item Value Reference Range Interpretation Comme nts 25-Hydroxyvitamin D3+25-Hydroxyvitamin D2 [Mass/volume] in Serum or Plasma (test code = 68020-8) 24.3 NG/mL 30.0-100.0 L [facility] CenterErythrocyte sedimentation rate 2024-02-19 00:00:00* Test Item Value Reference Range Interpretation Comme nts Erythrocyte sedimentation ra te by Westergren method (test code = 4537-7) 45 mm/HR 0-32 H [facility] ProgramPOCT Urinalysis w/o Specific [place] 2024-01-30 14:00:00* Test Item Value Reference Range Interpretation Comme nts POCT PH U (test code = 3254) 5 mg/dl 5-8 POCT U LEUK EST (test code = 3263) Negative Negative - Negative POCT U NIT (test code = 3262) Negative Negative - Negati ve POCT U PROT (test code = 3259) Negative Negative - Negat nitza POCT U GLU (test code = 3256) Negative Negative - Negati ve POCT U KETONE (test code = 3258) Negative Negative - Neg ative POCT U BLD (test code = 3257) Negative Negative - Negati ve [facility] Hospitalrap[facility] A, [id number] 15:34:00 * Test Item Value Reference Range Interpretation Comme nts Strep (test code = Strep) negative [facility] ProgramInfluenza virus A and B and SARS-CoV+SARS-CoV-2 (COVID-19) Ag panel - Upper respiratory specimen byRapid syhvnudlnmf3586-76-56 15:33:00* Test Item Value Reference Range Interpretation Comme nts Influenza A (test code = Inf luenza A) negative Influenza B (test code = Inf luenza B) negative SARS COV (test code = SARS COV) negative [facility] ProgramMicroscopic observation [Identifier] in Vaginal fluid by Wet pykuyqaungt6520-30-08 10:52:27* Test Item Value Reference Range Interpretation Comme nts Clue Cells (test code = Clue Cells) negative WBCs (test code = WBCs) positive Trichomonads (test code = Trichomonads) negative Epithelial cells (test code = Epithelial cells) normal RBCs (test code = RBCs) negative [facility] Groupurinalysis, lhkfatld6243-43-10 10:15:48* Test Item Value Reference Range Interpretation Comme nts Leukocytes (test code = Leukocytes) Negative Nitrite (test code = Nitrite) negative Urobilinogen (test code = Urobilinogen) .2 Protein (test code = Protein) Negative pH (test code = pH) 6.5 Blood (test code = Blood) Negative Specific [place] (test code = Specific [place]) 1.020 Ketone (test code = Ketone) Negative Bilirubin (test code = Bilirubin) Negative Glucose (test code = Glucose) Negative Appearance (test code = Appearance) Clear Color (test code = Color) Yellow [facility] CenterHerpes simplex virus 1+2 IgG Ab [Units/volume] in Serum by Sxrzdqbxccl2245-82-20 00:00:00* Test Item Value Reference Range Interpretation Comme nts Herpes simplex virus 1 IgG A b [Presence] in Serum or Plasma by Immunoassay (test code = 78499-9) Reactive non reactive A Herpes simplex virus 2 IgG A b [Presence] in Serum or Plasma by Immunoassay (test code = 62478-7) Non Reactive non reactive [facility] Centerurinalysis, [id number] 15:18:00* Test Item Value Reference Range Interpretation Comme nts Leukocytes (test code = Leukocytes) - Nitrite (test code = Nitrite) - Urobilinogen (test code = Urobilinogen) - Protein (test code = Protein) trace pH (test code = pH) 6.0 Blood (test code = Blood) - Specific [place] (test code = Specific [place]) 1.030 Ketone (test code = Ketone) - Bilirubin (test code = Bilirubin) - Glucose (test code = Glucose) - Appearance (test code = Appearance) clear Color (test code = Color) yellow [facility] CenterReagin Ab [Presence] in Serum by RPR 2023-12-31 00:00:00* Test Item Value Reference Range Interpretation Comme nts Reagin Ab [Presence] in Seru m by RPR (test code = 08947-3) Non Reactive non reactive [facility] CenterHepatitis B virus surface Ag [Presence] in Serum or Plasma by Vjyizjkimmi3055-07-08 00:00:00* Test Item Value Reference Range Interpretation Comme nts Hepatitis B virus surface Ag [Presence] in Serum or Plasma by Immunoassay (test code = 5196-1) Negative negative [facility] Centerinfectious disease [id number] 00:00:00* Test Item Value Reference Range Interpretation Comme nts atopobium vaginae (test code = atopobium vaginae) 0.000 ppm 19.961-24.689 bvab 2,3 (bacterial vaginosi s associated bacteria 2, 3); mobiluncus spp (test code = bvab 2,3 (bacterial vaginosis associated bacteria 2, 3); mobiluncus spp) 0.000 ppm 19.961-24.689 pérez albicans, parapsilos is, tropicalis (test code = pérez albicans, parapsilosis, tropicalis) 0.000 ppm 19.961-30.770 pérez glabrata (nakaseomyc es glabratus) (test code = pérez glabrata (nakaseomyces glabratus)) 0.000 ppm 23.000-32.138 pérez krusei (pichia kudriavzevii) (test code = pérez krusei (pichia kudriavzevii)) 0.000 ppm 23.000-32.271 chlamydia trachomatis (test code = chlamydia trachomatis) 0.000 ppm 23.000-31.467 gardnerella vaginalis (test code = gardnerella vaginalis) 0.000 ppm 19.961-24.689 herpes simplex virus 1 (test code = herpes simplex virus 1) 0.000 ppm 23.000-32.355 herpes simplex virus 2 (test code = herpes simplex virus 2) 0.000 ppm 23.000-31.433 megasphaera (types 1, 2) (te st code = megasphaera (types 1, 2)) 0.000 ppm 19.961-24.689 neisseria gonorrhoeae (test code = neisseria gonorrhoeae) 0.000 ppm 23.000-32.117 trichomonas vaginalis (test code = trichomonas vaginalis) 0.000 ppm 23.000-32.119 [facility] Programurinalysis, [id number] 15:56:00* Test Item Value Reference Range Interpretation Comme nts Leukocytes (test code = Leukocytes) - Nitrite (test code = Nitrite) - Urobilinogen (test code = Urobilinogen) - Protein (test code = Protein) - pH (test code = pH) 6.0 Blood (test code = Blood) - Specific [place] (test code = Specific [place]) 1.020 Ketone (test code = Ketone) - Bilirubin (test code = Bilirubin) 1+ Glucose (test code = Glucose) - Appearance (test code = Appearance) clear Color (test code = Color) yellow [facility] CenterHIV 1 and 2 tests - Meaningful Use [id number] 00:00:00* Test Item Value Reference Range Interpretation Comme nts HIV 1+2 Ab+HIV1 p24 Ag [Presence] in Serum or Plasma by Immunoassay (test code = 79129-9) Non Reactive non reactive [facility] CenterFree T4 and TSH panel - Serum or [id number] 00:00:00* Test Item Value Reference Range Interpretation Comme nts Thyrotropin [Units/volume] i n Serum or Plasma by Detection limit <= 0.005 mIU/L (test code = 99212-7) 1.250 uIU/mL 0.450-4.500 Thyroxine (T4) free [Mass/volume] in Serum or Plasma (test code = 3024-7) 1.21 NG/dL 0.82-1.77 [facility] CenterCBC W Auto Differential panel - Blood 2023-12-18 00:00:00* Test Item Value Reference Range Interpretation Comme nts Leukocytes [#/volume] in Blo od by Automated count (test code = 6690-2) 9.5 x10e3/uL 3.4-10.8 Erythrocytes [#/volume] in Blood by Automated count (test code = 789-8) 4.74 x10e6/uL 3.77-5.28 Hemoglobin [Mass/volume] in Blood (test code = 718-7) 12.5 g/dL 11.1-15.9 Hematocrit [Volume Fraction] of Blood by Automated count (test code = 4544-3) 38.8 % 34.0-46.6 MCV [Entitic volume] by Automated count (test code = 787-2) 82 fL 79-97 MCH [Entitic mass] by Automa yo count (test code = 785-6) 26.4 pg 26.6-33.0 L MCHC [Mass/volume] by Automa yo count (test code = 786-4) 32.2 g/dL 31.5-35.7 Erythrocyte distribution wid th [Ratio] by Automated count (test code = 788-0) 13.6 % 11.7-15.4 Platelets [#/volume] in Bloo d by Automated count (test code = 777-3) 328 x10e3/uL 150-450 Neutrophils/100 leukocytes i n Blood by Automated count (test code = 770-8) 64 % not estab. Lymphocytes/100 leukocytes i n Blood by Automated count (test code = 736-9) 27 % not estab. Monocytes/100 leukocytes in Blood by Automated count (test code = 5905-5) 7 % not estab. Eosinophils/100 leukocytes i n Blood by Automated count (test code = 713-8) 2 % not estab. Basophils/100 leukocytes in Blood by Automated count (test code = 706-2) 0 % not estab. immature cells (test code = immature cells) ENGINEER THIRD ASSISTANT Neutrophils [#/volume] in Bl ood by Automated count (test code = 751-8) 6.0 x10e3/uL 1.4-7.0 Lymphocytes [#/volume] in Bl ood by Automated count (test code = 731-0) 2.5 x10e3/uL 0.7-3.1 Monocytes [#/volume] in Bloo d by Automated count (test code = 742-7) 0.7 x10e3/uL 0.1-0.9 Eosinophils [#/volume] in Bl ood by Automated count (test code = 711-2) 0.2 x10e3/uL 0.0-0.4 Basophils [#/volume] in Bloo d by Automated count (test code = 704-7) 0.0 x10e3/uL 0.0-0.2 Immature granulocytes/100 leukocytes in Blood by Automated count (test code = 23691-9) 0 % not estab. Immature granulocytes [#/volume] in Blood by Automated count (test code = 16020-2) 0.0 x10e3/uL 0.0-0.1 Nucleated erythrocytes/100 leukocytes [Ratio] in Blood by Automated count (test code = 49699-2) ENGINEER THIRD ASSISTANT Morphology [Interpretation] in Blood Narrative (test code = 80671-8) ENGINEER THIRD ASSISTANT [facility] ProgramComprehensive metabolic 2000 panel - Serum or Wnpkmg2359-49-28 00:00:00* Test Item Value Reference Range Interpretation Comme nts Glucose [Mass/volume] in Ser um or Plasma (test code = 2345-7) 86 mg/dL 70-99 Urea nitrogen [Mass/volume] in Serum or Plasma (test code = 3094-0) 10 mg/dL 6-20 Creatinine [Mass/volume] in Serum or Plasma (test code = 2160-0) 0.82 mg/dL 0.57-1.00 Glomerular filtration rate/1.73 sq M.predicted [Volume Rate/Area] in Serum, Plasma or Blood by Creatinine-based formula (CKD-EPI 2020) (test code = 79950-6) 94 mL/min/1.73 >59 Urea nitrogen/Creatinine [Ma ss Ratio] in Serum or Plasma (test code = 3097-3) 12 9-23 Sodium [Moles/volume] in Ser um or Plasma (test code = 2951-2) 137 mmol/L 134-144 Potassium [Moles/volume] in Serum or Plasma (test code = 2823-3) 4.6 mmol/L 3.5-5.2 Chloride [Moles/volume] in Serum or Plasma (test code = 2074-0) 102 mmol/L 96-106 Carbon dioxide, total [Moles/volume] in Serum or Plasma (test code = 2027-) 22 mmol/L 20-29 Calcium [Mass/volume] in Ser um or Plasma (test code = 59735-8) 9.8 mg/dL 8.7-10.2 Protein [Mass/volume] in Ser um or Plasma (test code = 2885-2) 7.6 g/dL 6.0-8.5 Albumin [Mass/volume] in Ser um or Plasma (test code = 1751-7) 4.4 g/dL 3.9-4.9 Globulin [Mass/volume] in Serum by calculation (test code = 01967-9) 3.2 g/dL 1.5-4.5 Bilirubin.total [Mass/volume ] in Serum or Plasma (test code = 1974-2) <0.2 0.0-1.2 Alkaline phosphatase [Enzymatic activity/volume] in Serum or Plasma (test code = 6768-6) 69 IU/L 44-121 Aspartate aminotransferase [Enzymatic activity/volume] in Serum or Plasma (test code = 0-8) 17 IU/L 0-40 Alanine aminotransferase [Enzymatic activity/volume] in Serum or Plasma (test code = 174-6) 10 IU/L 0-32 [facility] CenterLipid 1996 panel - Serum or Plasma 2023-12-18 00:00:00* Test Item Value Reference Range Interpretation Comme nts Cholesterol [Mass/volume] in Serum or Plasma (test code = 2093-3) 168 mg/dL 100-199 Triglyceride [Mass/volume] i n Serum or Plasma (test code = 2571-8) 61 mg/dL 0-149 Cholesterol in HDL [Mass/vol ume] in Serum or Plasma (test code = 2085-9) 59 mg/dL >39 Cholesterol in VLDL [Mass/vo lume] in Serum or Plasma by calculation (test code = 23527-6) 12 mg/dL 5-40 Cholesterol in LDL [Mass/vol ume] in Serum or Plasma by calculation (test code = 56304-5) 97 mg/dL 0-99 LDL calc comment: (test code = LDL calc comment:) ENGINEER THIRD ASSISTANT [facility] [Mass Ratio] in [id number] 00:00:00* Test Item Value Reference Range Interpretation Comme nts Creatinine [Mass/volume] in Urine (test code = 2161-8) 136.9 mg/dL not estab. Microalbumin [Mass/volume] i n Urine (test code = 35100-8) 3.8 ug/mL not estab. Albumin/Creatinine [Mass Rat io] in Urine (test code = 9318-7) 3 mg/g creat 0-29 [facility]/Hemoglobin.total in [id number] 00:00:00* Test Item Value Reference Range Interpretation Comme nts Hemoglobin A1c/Hemoglobin.to corin in Blood (test code = 4548-4) 5.5 % 4.8-5.6 Glucose mean value [Mass/vol ume] in Blood Estimated from glycated hemoglobin (test code = 38463-7) 111 mg/dL [facility] CenterTriiodothyronine (T3) Free [Mass/volume] in Serum or [id number] 00:00:00* Test Item Value Reference Range Interpretation Comme nts Triiodothyronine (T3) Free [Mass/volume] in Serum or Plasma (test code = 3051-0) 2.8 pg/mL 2.0-4.4 [facility] Centercardiovascular [id number] 00:00:00* Test Item Value Reference Range Interpretation Comme nts Interpretation and review of laboratory results (test code = 10221-3) Note [facility] Centerinfectious disease [id number] 00:00:00* Test Item Value Reference Range Interpretation Comme nts streptococcus pyogenes (grou p A strep) (test code = streptococcus pyogenes (group A strep)) 0.000 ppm 19.961-24.689 streptococcus pneumoniae (te st code = streptococcus pneumoniae) 0.000 ppm 19.961-24.689 streptococcus agalactiae (gr oup B strep) (test code = streptococcus agalactiae (group B strep)) 0.000 ppm 19.961-24.689 staphylococcus aureus (test code = staphylococcus aureus) 0.000 ppm 19.961-24.689 serratia marcescens (test co de = serratia marcescens) 0.000 ppm 19.961-24.689 respiratory syncytial virus (rsvb_VI99990015_po) (test code = respiratory syncytial virus (rsvb_VI99990015_po)) 0.000 ppm 23.000-31.722 pseudomonas aeruginosa (test code = pseudomonas aeruginosa) 0.000 ppm 19.961-24.689 proteus mirabilis, vulgaris (test code = proteus mirabilis, vulgaris) 0.000 ppm 19.961-24.689 parainfluenza virus (types 1 , 2, 3, 4) (test code = parainfluenza virus (types 1, 2, 3, 4)) 0.000 ppm 23.000-31.313 mycoplasma pneumoniae (test code = mycoplasma pneumoniae) 0.000 ppm 19.961-24.689 moraxella catarrhalis (test code = moraxella catarrhalis) 0.000 ppm 19.961-24.689 legionella pneumophila (test code = legionella pneumophila) 0.000 ppm 19.961-24.689 klebsiella pneumoniae, oxyto ca (test code = klebsiella pneumoniae, oxytoca) 0.000 ppm 19.961-24.689 influenza virus B (test code = influenza virus B) 0.000 ppm 23.000-30.081 human metapneumovirus (test code = human metapneumovirus) 0.000 ppm 23.000-32.210 haemophilus influenzae (test code = haemophilus influenzae) 0.000 ppm 19.961-24.689 escherichia coli (test code = escherichia coli) 0.000 ppm 19.961-24.689 enterovirus D68 (test code = enterovirus D68) 0.000 ppm 23.000-32.117 coronaviruses (229E, nl63, h ku1, oc43) (g_betacoronavirus_1_g_coronavirus_ hku1) (test code = coronaviruses (229E, nl63, hku1, oc43) (g_betacoronavirus_1_g_coronavirus_ hku1)) 0.000 ppm 23.000-31.416 chlamydia pneumoniae (test c ode = chlamydia pneumoniae) 0.000 ppm 19.961-24.689 bordetella pertussis, parapertussis, bronchiseptica (test code = bordetella pertussis, parapertussis, bronchiseptica) 0.000 ppm 19.961-24.689 acinetobacter baumannii (shankar t code = acinetobacter baumannii) 0.000 ppm 19.961-24.689 covid-19 coronavirus (sars-c ov-2) (test code = covid-19 coronavirus (sars-cov-2)) Negative rhinovirus/enterovirus (RV_2of2_VI99990017_po) (test code = rhinovirus/enterovirus (RV_2of2_VI99990017_po)) 0.000 ppm 23.000-32.985 adenovirus (adv_1of2_VI99990 001_po) (test code = adenovirus (adv_1of2_VI99990001_po)) 0.000 ppm 23.000-31.943 enterobacter aerogenes, cloa (test code = enterobacter aerogenes, cloacae) 0.000 ppm 19.961-24.689 [facility] CenterInfluenza virus A and B and SARS-CoV+SARS-CoV-2 (COVID-19) Ag panel - Upper respiratory specimen byRapid [id number] 14:20:35* Test Item Value Reference Range Interpretation Comme nts Influenza A (test code = Inf luenza A) negative Influenza B (test code = Inf luenza B) negative SARS COV (test code = SARS COV) negative [facility] Centerurinalysis, [id number] 09:07:29* Test Item Value Reference Range Interpretation Comme nts Leukocytes (test code = Leukocytes) Negative Nitrite (test code = Nitrite) negative Urobilinogen (test code = Urobilinogen) .2 Protein (test code = Protein) Negative pH (test code = pH) 6.0 Blood (test code = Blood) Negative Specific [place] (test code = Specific [place]) 1.030 Ketone (test code = Ketone) Negative Bilirubin (test code = Bilirubin) Negative Glucose (test code = Glucose) Negative Appearance (test code = Appearance) Clear Color (test code = Color) Yellow [facility] PELVIS COMPLETE WITH [id number] 21:31:34 EXAM: US PELVIS COMPLETE WITH TRANSVAGINAL HISTORY: 38 years-old Female; Provided indication: pelvic pain . LMP = 11/20/2023 TECHNIQUE: Transabdominal and transvaginal ultrasound imaging and colorDoppler evaluation of the pelvis was performed. Director Employee Communications images wereobtained for the record. COMPARISON: None FINDINGS: Uterus: The uterus measures 13.3 x 8.6 x 9.4 cm. The endometrium is normal inappearance and is 1.1 cm thick. Multiple fibroids are present and measureup to 6.2 cm at the fundus, 3.6 cm at the fundus, 3.1 cm at the loweruterine segment, with additional shadowing fibroids suspected at theuterine body, some of which may have a submucosal component. Nabothiancysts are present at the cervix. Right Adnexa:Ovary: The right ovary measures 3.6 x 2.3 x 2.0 cm with a volume of 8.6 ml.Small physiologic follicles are present. Left Adnexa:Ovary: The left ovary measures 2.7 x 2.9 x 3.5 cm with a volume of 14.1 ml.Small physiologic follicles are present. Cul-de-sac: Small amounts of free fluid, likely physiological, are present.[facility] HospitalSTI [id number] 00:00:00* Test Item Value Reference Range Interpretation Comme nts CT/NG (test code = CT/NG) NORMAL trichomonas vaginalis addon - swab (test code = trichomonas vaginalis addon - swab) NORMAL [facility] CenterMicroscopic observation [Identifier] in Vaginal fluid by Wet orreaqxhbhl3577-81-70 13:25:48* Test Item Value Reference Range Interpretation Comme nts Clue Cells (test code = Clue Cells) negative WBCs (test code = WBCs) positive Trichomonads (test code = Trichomonads) negative Epithelial cells (test code = Epithelial cells) normal RBCs (test code = RBCs) negative [facility] [id number] 00:00:00* Test Item Value Reference Range Interpretation Comme nts atopobium vaginae (test code = atopobium vaginae) 0.000 ppm 19.961-24.689 bvab 2,3 (bacterial vaginosi s associated bacteria 2, 3); mobiluncus spp (test code = bvab 2,3 (bacterial vaginosis associated bacteria 2, 3); mobiluncus spp) 0.000 ppm 19.961-24.689 pérez albicans, parapsilos is, tropicalis (test code = pérez albicans, parapsilosis, tropicalis) 0.000 ppm 19.961-30.770 pérez glabrata (test code = pérez glabrata) 0.000 ppm 23.000-32.138 pérez krusei (test code = pérez krusei) 0.000 ppm 23.000-32.271 chlamydia trachomatis (test code = chlamydia trachomatis) 0.000 ppm 23.000-31.467 gardnerella vaginalis (test code = gardnerella vaginalis) 0.000 ppm 19.961-24.689 herpes simplex virus 1 (test code = herpes simplex virus 1) 0.000 ppm 23.000-32.355 herpes simplex virus 2 (test code = herpes simplex virus 2) 0.000 ppm 23.000-31.433 megasphaera (types 1, 2) (te st code = megasphaera (types 1, 2)) 0.000 ppm 19.961-24.689 neisseria gonorrhoeae (test code = neisseria gonorrhoeae) 0.000 ppm 23.000-32.117 trichomonas vaginalis (test code = trichomonas vaginalis) 0.000 ppm 23.000-32.119 [facility] [id number] 00:00:00* Test Item Value Reference Range Interpretation Comme nts atopobium vaginae (test code = atopobium vaginae) 0.000 ppm 19.961-24.689 bvab 2,3 (bacterial vaginosi s associated bacteria 2, 3); mobiluncus spp (test code = bvab 2,3 (bacterial vaginosis associated bacteria 2, 3); mobiluncus spp) 0.000 ppm 19.961-24.689 pérez albicans, parapsilos is, tropicalis (test code = pérez albicans, parapsilosis, tropicalis) 0.000 ppm 19.961-30.770 pérez glabrata (test code = pérez glabrata) 0.000 ppm 23.000-32.138 pérez krusei (test code = pérez krusei) 0.000 ppm 23.000-32.271 chlamydia trachomatis (test code = chlamydia trachomatis) 0.000 ppm 23.000-31.467 gardnerella vaginalis (test code = gardnerella vaginalis) 0.000 ppm 19.961-24.689 herpes simplex virus 1 (test code = herpes simplex virus 1) 0.000 ppm 23.000-32.355 herpes simplex virus 2 (test code = herpes simplex virus 2) 0.000 ppm 23.000-31.433 megasphaera (types 1, 2) (te st code = megasphaera (types 1, 2)) 15.044 ppm 19.961-24.689 A neisseria gonorrhoeae (test code = neisseria gonorrhoeae) 0.000 ppm 23.000-32.117 trichomonas vaginalis (test code = trichomonas vaginalis) 0.000 ppm 23.000-32.119 tet B, tet M (test code = te t B, tet M) 19.619 ppm 23.000-27.778 A [facility] Centerurinalysis, [id number] 14:19:00* Test Item Value Reference Range Interpretation Comme nts Leukocytes (test code = Leukocytes) - Nitrite (test code = Nitrite) - Urobilinogen (test code = Urobilinogen) - Protein (test code = Protein) - pH (test code = pH) 6.0 Blood (test code = Blood) - Specific [place] (test code = Specific [place]) 1.010 Ketone (test code = Ketone) - Bilirubin (test code = Bilirubin) - Glucose (test code = Glucose) - Appearance (test code = Appearance) clear Color (test code = Color) yellow [facility] flu (A+B)2023-09-10 13:43:48* Test Item Value Reference Range Interpretation Comme nts Flu (test code = Flu) negative [facility] Center[facility]id strep group A, [id number] 13:06:00* Test Item Value Reference Range Interpretation Comme nts Strep (test code = Strep) negative [facility] Ag [Presence] in Upper respiratory specimen by Mphfeqmovvr5615-13-34 13:02:00* Test Item Value Reference Range Interpretation Comme nts Covid Antigen Test (test cod e = Covid Antigen Test) negative [facility] Centerrapid strep group A, [id number] 13:44:00* Test Item Value Reference Range Interpretation Comme nts Strep (test code = Strep) positive [facility] W Auto Differential panel - Blood 2023-08-13 00:00:00* Test Item Value Reference Range Interpretation Comme nts Leukocytes [#/volume] in Blo od by Automated count (test code = 6690-2) 7.0 x10e3/uL 3.4-10.8 Erythrocytes [#/volume] in Blood by Automated count (test code = 789-8) 4.35 x10e6/uL 3.77-5.28 Hemoglobin [Mass/volume] in Blood (test code = 718-7) 11.7 g/dL 11.1-15.9 Hematocrit [Volume Fraction] of Blood by Automated count (test code = 4544-3) 35.7 % 34.0-46.6 MCV [Entitic volume] by Automated count (test code = 787-2) 82 fL 79-97 MCH [Entitic mass] by Automa yo count (test code = 785-6) 26.9 pg 26.6-33.0 MCHC [Mass/volume] by Automa yo count (test code = 786-4) 32.8 g/dL 31.5-35.7 Erythrocyte distribution wid th [Ratio] by Automated count (test code = 788-0) 13.4 % 11.7-15.4 Platelets [#/volume] in Bloo d by Automated count (test code = 777-3) 438 x10e3/uL 150-450 Neutrophils/100 leukocytes i n Blood by Automated count (test code = 770-8) 57 % not estab. Lymphocytes/100 leukocytes i n Blood by Automated count (test code = 736-9) 34 % not estab. Monocytes/100 leukocytes in Blood by Automated count (test code = 5905-5) 7 % not estab. Eosinophils/100 leukocytes i n Blood by Automated count (test code = 713-8) 2 % not estab. Basophils/100 leukocytes in Blood by Automated count (test code = 706-2) 0 % not estab. immature cells (test code = immature cells) ENGINEER THIRD ASSISTANT Neutrophils [#/volume] in Bl ood by Automated count (test code = 751-8) 3.9 x10e3/uL 1.4-7.0 Lymphocytes [#/volume] in Bl ood by Automated count (test code = 731-0) 2.4 x10e3/uL 0.7-3.1 Monocytes [#/volume] in Bloo d by Automated count (test code = 742-7) 0.5 x10e3/uL 0.1-0.9 Eosinophils [#/volume] in Bl ood by Automated count (test code = 711-2) 0.2 x10e3/uL 0.0-0.4 Basophils [#/volume] in Bloo d by Automated count (test code = 704-7) 0.0 x10e3/uL 0.0-0.2 Immature granulocytes/100 leukocytes in Blood by Automated count (test code = 42298-3) 0 % not estab. Immature granulocytes [#/volume] in Blood by Automated count (test code = 83814-5) 0.0 x10e3/uL 0.0-0.1 Nucleated erythrocytes/100 leukocytes [Ratio] in Blood by Automated count (test code = 48458-6) ENGINEER THIRD ASSISTANT Morphology [Interpretation] in Blood Narrative (test code = 37836-1) ENGINEER THIRD ASSISTANT [facility] ProgramIron and Iron binding capacity panel - Serum or Tsfujw6797-05-28 00:00:00* Test Item Value Reference Range Interpretation Comme nts Iron binding capacity [Mass/ volume] in Serum or Plasma (test code = 2500-7) 396 ug/dL 250-450 Iron binding capacity.unsatu rated [Mass/volume] in Serum or Plasma (test code = 2501-5) 359 ug/dL 131-425 Iron [Mass/volume] in Serum or Plasma (test code = 2498-4) 37 ug/dL 27-159 Iron saturation [Mass Fracti on] in Serum or Plasma (test code = 2502-3) 9 % 15-55 L [facility]25-Hydroxyvitamin D3+25- Hydroxyvitamin D2 [Mass/volume] in Serum or [id number] 00:00:00* Test Item Value Reference Range Interpretation Comme nts 25-Hydroxyvitamin D3+25-Hydroxyvitamin D2 [Mass/volume] in Serum or Plasma (test code = 86948-9) 24.7 NG/mL 30.0-100.0 L [facility] ProgramFerritin [Mass/volume] in Serum or [id number] 00:00:00* Test Item Value Reference Range Interpretation Comme nts Ferritin [Mass/volume] in Se rum or Plasma (test code = 2276-4) 12 NG/mL 15-150 L [facility] CenterREFERRAL- REQUEST/[id number] 14:23:58Ordered by an unspecified provider.[facility] Microscopic observation [Identifier] in Vaginal fluid by Wet preparation 2023-07-07 08:36:29* Test Item Value Reference Range Interpretation Comme nts Clue Cells (test code = Clue Cells) negative WBCs (test code = WBCs) negative Trichomonads (test code = Trichomonads) negative Epithelial cells (test code = Epithelial cells) normal RBCs (test code = RBCs) negative [facility] GroupUrinalysis macro (dipstick) panel - [id number] 08:24:00* Test Item Value Reference Range Interpretation Comme nts Leukocytes (test code = Leukocytes) Negative Nitrite (test code = Nitrite) negative Urobilinogen (test code = Urobilinogen) .2 Protein (test code = Protein) Negative pH (test code = pH) 6.0 Blood (test code = Blood) Negative Specific [place] (test code = Specific [place]) 1.020 Ketone (test code = Ketone) Negative Bilirubin (test code = Bilirubin) Negative Glucose (test code = Glucose) Negative Appearance (test code = Appearance) Clear Color (test code = Color) Yellow [facility] GroupUrinalysis macro (dipstick) panel - [id number] 09:00:50* Test Item Value Reference Range Interpretation Comme nts Leukocytes (test code = Leukocytes) Negative Nitrite (test code = Nitrite) negative Urobilinogen (test code = Urobilinogen) 1 Protein (test code = Protein) 100 pH (test code = pH) 5.5 Blood (test code = Blood) Large Specific [place] (test code = Specific [place]) 1.025 Ketone (test code = Ketone) Negative Bilirubin (test code = Bilirubin) Negative Glucose (test code = Glucose) Negative Appearance (test code = Appearance) Clear Color (test code = Color) Red [facility] CenterBacterial vaginosis and vaginitis DNA panel - Vaginal fluid by Probe with signal [id number] 00:00:00* Test Item Value Reference Range Interpretation Comme nts bv result (test code = bv result) negative lactobacillus spp. (test cod e = lactobacillus spp.) normal gardnerella vaginalis (test code = gardnerella vaginalis) not detected atopobium vaginae (test code = atopobium vaginae) not detected bvab2 (test code = bvab2) not detected megasphera spp. (test code = megasphera spp.) not detected mobiluncus curtisii (test co de = mobiluncus curtisii) not detected mobiluncus mulieris (test co de = mobiluncus mulieris) not detected prevotella bivia (test code = prevotella bivia) not detected lactobacillus iners (test co de = lactobacillus iners) not detected specimen (test code = specimen) see note pérez albicans (test code = pérez albicans) not detected pérez glabrata (test code = pérez glabrata) not detected pérez parapsilosis (test c ode = pérez parapsilosis) not detected pérez tropicalis (test cod e = pérez tropicalis) not detected pérez krusei (test code = pérez krusei) not detected trichomonas, naat (test code = trichomonas, naat) negative negative [facility] ProgramChlamydia trachomatis DNA [Presence] in Specimen by BONNIE with probe [id number] 00:00:00* Test Item Value Reference Range Interpretation Comme nts chlamydia, naat, swab (test code = chlamydia, naat, swab) negative negative [facility] ProgramNeisseria gonorrhoeae DNA [Presence] in Specimen by BONNIE with probe [id number] 00:00:00* Test Item Value Reference Range Interpretation Comme nts gonorrhea, naat, swab (test code = gonorrhea, naat, swab) negative negative [facility] Programpap, IG + CT/NG + HR [id number] 00:00:00* Test Item Value Reference Range Interpretation Comme nts source: (test code = source:) unspecified slides: (test code = slides:) 1 LMP: (test code = LMP:) not given specimen adequacy: (test code = specimen adequacy:) (note) interpretation: (test code = interpretation:) nilm/no epith. abnormality;see below climate change analyst: (test code = climate change analyst:) TRISTEN stewart(ascp)IAC location: (test code = location:) (note) CPT: (test code = CPT:) (note) HPV high risk interp (test code = HPV high risk interp) negative negative HPV 16 (test code = HPV 16) negative HPV 18 (test code = HPV 18) negative HPV, HR, other genotypes (test code = HPV, HR, other genotypes) negative gonorrhea, naat, thinprep (test code = gonorrhea, naat, thinprep) negative negative chlamydia, naat, thinprep (test code = chlamydia, naat, thinprep) negative negative [facility] CenterVaginal pathogens panel - Vaginal fluid by BONNIE with probe [id number] 00:00:00* Test Item Value Reference Range Interpretation Comme nts Atopobium vaginae DNA [Prese nce] in Vaginal fluid by BONNIE with probe detection (test code = 11477-9) low - 0 Bacterial vaginosis associat ed bacterium 2 DNA [Presence] in Vaginal fluid by BONNIE with probe detection (test code = 23005-6) low - 0 Megasphaera sp type 1 DNA [P resence] in Vaginal fluid by BONNIE with probe detection (test code = 50095-3) low - 0 Pérez albicans DNA [Presen ce] in Vaginal fluid by BONNIE with probe detection (test code = 86698-1) negative negative Pérez glabrata DNA [Presen ce] in Vaginal fluid by BONNIE with probe detection (test code = 12791-3) negative negative Trichomonas vaginalis DNA [P resence] in Vaginal fluid by BONNIE with probe detection (test code = 40048-2) negative negative Chlamydia trachomatis DNA [P resence] in Vaginal fluid by BONNIE with probe detection (test code = 38001-9) negative negative Neisseria gonorrhoeae DNA [P resence] in Vaginal fluid by BONNIE with probe detection (test code = 46077-6) negative negative [facility] CenterUrinalysis macro (dipstick) panel - [id number] 11:06:20* Test Item Value Reference Range Interpretation Comme nts Leukocytes (test code = Leukocytes) - Nitrite (test code = Nitrite) - Urobilinogen (test code = Urobilinogen) - Protein (test code = Protein) - pH (test code = pH) 6.5 Blood (test code = Blood) +- Specific [place] (test code = Specific [place]) 1.005 Ketone (test code = Ketone) - Bilirubin (test code = Bilirubin) - Glucose (test code = Glucose) - Appearance (test code = Appearance) clear Color (test code = Color) yellow [facility] CenterN[facility] Ab [Presence] in Serum 2023-05-01 00:00:00* Test Item Value Reference Range Interpretation Comme nts Nuclear Ab [Presence] in Ser um (test code = 8061-4) negative negative [facility] CenterBacteria identified in Urine by [id number] 00:00:00* Test Item Value Reference Range Interpretation Comme nts Bacteria identified in Urine by Culture (test code = 630-4) comment [facility] CenterUrinalysis macro (dipstick) panel - [id number] 11:37:41* Test Item Value Reference Range Interpretation Comme nts Leukocytes (test code = Leukocytes) 3+ Nitrite (test code = Nitrite) + Urobilinogen (test code = Urobilinogen) - Protein (test code = Protein) 3+ pH (test code = pH) 5.5 Blood (test code = Blood) 3+ Specific [place] (test code = Specific [place]) 1.030 Ketone (test code = Ketone) +- Bilirubin (test code = Bilirubin) - Glucose (test code = Glucose) - Appearance (test code = Appearance) red Color (test code = Color) red [facility] CenterBacteria identified in Urine by [id number] 00:00:00* Test Item Value Reference Range Interpretation Comme nts Bacteria identified in Urine by Culture (test code = 630-4) comment [facility] CenterUrinalysis macro (dipstick) panel - [id number] 18:01:00* Test Item Value Reference Range Interpretation Comme nts Leukocytes (test code = Leukocytes) - Nitrite (test code = Nitrite) - Urobilinogen (test code = Urobilinogen) 0.2 Protein (test code = Protein) - pH (test code = pH) 6.0 Blood (test code = Blood) - Specific [place] (test code = Specific [place]) 1.025 Ketone (test code = Ketone) - Bilirubin (test code = Bilirubin) - Glucose (test code = Glucose) - Appearance (test code = Appearance) clear Color (test code = Color) yellow [facility] Centerwritten [id number] 00:00:00* Test Item Value Reference Range Interpretation Comme nts written authorization (test code = written authorization) comment [facility] CenterVaginal pathogens panel - Vaginal fluid by BONNIE with probe [id number] 00:00:00* Test Item Value Reference Range Interpretation Comme nts Atopobium vaginae DNA [Prese nce] in Vaginal fluid by BONNIE with probe detection (test code = 79063-5) low - 0 Bacterial vaginosis associat ed bacterium 2 DNA [Presence] in Vaginal fluid by BONNIE with probe detection (test code = 18638-7) low - 0 Megasphaera sp type 1 DNA [P resence] in Vaginal fluid by BONNIE with probe detection (test code = 89554-3) low - 0 Pérez albicans DNA [Presen ce] in Vaginal fluid by BONNIE with probe detection (test code = 02902-6) negative negative Pérez glabrata DNA [Presen ce] in Vaginal fluid by BONNIE with probe detection (test code = 08667-8) negative negative Trichomonas vaginalis DNA [P resence] in Vaginal fluid by BONNIE with probe detection (test code = 03587-5) negative negative Chlamydia trachomatis DNA [P resence] in Vaginal fluid by BONNIE with probe detection (test code = 00150-4) negative negative Neisseria gonorrhoeae DNA [P resence] in Vaginal fluid by BONNIE with probe detection (test code = 12672-8) negative negative [facility] ProgramBacteria identified in Urine by [id number] 00:00:00* Test Item Value Reference Range Interpretation Comme nts Bacteria identified in Urine by Culture (test code = 630-4) no growth [facility] ProgramUrinalysis macro (dipstick) panel - [id number] 11:49:00* Test Item Value Reference Range Interpretation Comme nts Leukocytes (test code = Leukocytes) neg Nitrite (test code = Nitrite) neg Urobilinogen (test code = Urobilinogen) 0.2 Protein (test code = Protein) neg pH (test code = pH) 6.0 Blood (test code = Blood) neg Specific [place] (test code = Specific [place]) 1.020 Ketone (test code = Ketone) neg Bilirubin (test code = Bilirubin) neg Glucose (test code = Glucose) neg [facility] ProgramRheumatoid factor [Units/volume] in Serum or [id number] 00:00:00* Test Item Value Reference Range Interpretation Comme nts Rheumatoid factor [Units/vol ume] in Serum or Plasma (test code = 64479-9) <10.0 <14.0 [facility] [id number] 00:00:00* Test Item Value Reference Range Interpretation Comme nts request problem (test code = request problem) comment [facility] CenterFree T4 and TSH panel - Serum or [id number] 00:00:00* Test Item Value Reference Range Interpretation Comme nts Thyrotropin [Units/volume] i n Serum or Plasma by Detection limit <= 0.005 mIU/L (test code = 68822-4) 1.940 uIU/mL 0.450-4.500 Thyroxine (T4) free [Mass/volume] in Serum or Plasma (test code = 3024-7) 1.27 NG/dL 0.82-1.77 [facility] CenterCBC W Auto Differential panel - Blood 2023-03-27 00:00:00* Test Item Value Reference Range Interpretation Comme nts Leukocytes [#/volume] in Blo od by Automated count (test code = 6690-2) 7.5 x10e3/uL 3.4-10.8 Erythrocytes [#/volume] in Blood by Automated count (test code = 789-8) 4.76 x10e6/uL 3.77-5.28 Hemoglobin [Mass/volume] in Blood (test code = 718-7) 12.7 g/dL 11.1-15.9 Hematocrit [Volume Fraction] of Blood by Automated count (test code = 4544-3) 39.5 % 34.0-46.6 MCV [Entitic volume] by Automated count (test code = 787-2) 83 fL 79-97 MCH [Entitic mass] by Automa yo count (test code = 785-6) 26.7 pg 26.6-33.0 MCHC [Mass/volume] by Automa yo count (test code = 786-4) 32.2 g/dL 31.5-35.7 Erythrocyte distribution wid th [Ratio] by Automated count (test code = 788-0) 13.2 % 11.7-15.4 Platelets [#/volume] in Bloo d by Automated count (test code = 777-3) 457 x10e3/uL 150-450 H Neutrophils/100 leukocytes i n Blood by Automated count (test code = 770-8) 61 % not estab. Lymphocytes/100 leukocytes i n Blood by Automated count (test code = 736-9) 31 % not estab. Monocytes/100 leukocytes in Blood by Automated count (test code = 5905-5) 6 % not estab. Eosinophils/100 leukocytes i n Blood by Automated count (test code = 713-8) 2 % not estab. Basophils/100 leukocytes in Blood by Automated count (test code = 706-2) 0 % not estab. 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 [facility] ProgramCom[facility] 2000 panel - Serum or [id number] 00:00:00* Test Item Value Reference Range Interpretation Comme nts Glucose [Mass/volume] in Serum or Plasma (test code = 2345-7) 81 mg/dL 70-99 Urea nitrogen [Mass/volume] in Serum or Plasma (test code = 3094-0) 9 mg/dL 6-20 Creatinine [Mass/volume] in Serum or Plasma (test code = 2160-0) 0.76 mg/dL 0.57-1.00 Glomerular filtration rate/1.73 sq M.predicted [Volume Rate/Area] in Serum, Plasma or Blood by Creatinine-based formula (CKD-EPI 2020) (test code = 54359-2) 104 mL/min/1.73 >59 Urea nitrogen/Creatinine [Mass Ratio] in Serum or Plasma (test code = 3097-3) 12 9-23 Sodium [Moles/volume] in Serum or Plasma (test code = 2951-2) 137 mmol/L 134-144 Potassium [Moles/volume] in Serum or Plasma (test code = 2823-3) 4.5 mmol/L 3.5-5.2 Chloride [Moles/volume] in Serum or Plasma (test code = 2074-0) 103 mmol/L 96-106 Carbon dioxide, total [Moles/volume] in Serum or Plasma (test code = 2027-) 22 mmol/L 20-29 Calcium [Mass/volume] in Serum or Plasma (test code = 19256-4) 9.4 mg/dL 8.7-10.2 Protein [Mass/volume] in Serum or Plasma (test code = 2885-2) 7.6 g/dL 6.0-8.5 Albumin [Mass/volume] in Serum or Plasma (test code = 1751-7) 4.4 g/dL 3.9-4.9 Globulin [Mass/volume] in Serum by calculation (test code = 36240-6) 3.2 g/dL 1.5-4.5 Albumin/Globulin [Mass Ratio ] in Serum or Plasma (test code = 1759-0) 1.4 1.2-2.2 Bilirubin.total [Mass/volume ] in Serum or Plasma (test code = 1974-) <0.2 0.0-1.2 Alkaline phosphatase [Enzymatic activity/volume] in Serum or Plasma (test code = 6768-6) 62 IU/L 44-121 Aspartate aminotransferase [Enzymatic activity/volume] in Serum or Plasma (test code = 1919-8) 14 IU/L 0-40 Alanine aminotransferase [Enzymatic activity/volume] in Serum or Plasma (test code = 1742-6) 11 IU/L 0-32 [facility] CenterLipid 1996 panel - Serum or Plasma 2023-03-27 00:00:00* Test Item Value Reference Range Interpretation Comme nts Cholesterol [Mass/volume] in Serum or Plasma (test code = 2093-3) 158 mg/dL 100-199 Triglyceride [Mass/volume] i n Serum or Plasma (test code = 2571-8) 49 mg/dL 0-149 Cholesterol in HDL [Mass/vol ume] in Serum or Plasma (test code = 2085-9) 53 mg/dL >39 Cholesterol in VLDL [Mass/vo lume] in Serum or Plasma by calculation (test code = 75993-3) 10 mg/dL 5-40 Cholesterol in LDL [Mass/vol ume] in Serum or Plasma by calculation (test code = 52654-8) 95 mg/dL 0-99 Laboratory comment [Text] in Report Narrative (test code = 52317-7) 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 [facility] CenterIron and Iron binding capacity panel - Serum or Pofvol8543-01-21 00:00:00* Test Item Value Reference Range Interpretation Comme nts Iron binding capacity [Mass/ volume] in Serum or Plasma (test code = 2500-7) 381 ug/dL 250-450 Iron binding capacity.unsatu rated [Mass/volume] in Serum or Plasma (test code = 2501-5) 345 ug/dL 131-425 Iron [Mass/volume] in Serum or Plasma (test code = 2498-4) 36 ug/dL 27-159 Iron saturation [Mass Fracti on] in Serum or Plasma (test code = 2502-3) 9 % 15-55 L [facility] CenterHemoglobin A1c/Hemoglobin.total in Aijkq5554-96-24 00:00:00* Test Item Value Reference Range Interpretation Comme nts Hemoglobin A1c/Hemoglobin.to corin in Blood (test code = 4548-4) 5.5 % 4.8-5.6 Glucose mean value [Mass/vol ume] in Blood Estimated from glycated hemoglobin (test code = 82984-3) 111 mg/dL [facility]25-Hydroxyvitamin D3+25- Hydroxyvitamin D2 [Mass/volume] in Serum or [id number] 00:00:00* Test Item Value Reference Range Interpretation Comme nts 25-Hydroxyvitamin D3+25-Hydroxyvitamin D2 [Mass/volume] in Serum or Plasma (test code = 43812-5) 24.0 NG/mL 30.0-100.0 L [facility] CenterErythrocyte sedimentation rate by Westergren znjcwb7473-21-23 00:00:00* Test Item Value Reference Range Interpretation Comme nts Erythrocyte sedimentation ra te by Westergren method (test code = 4537-7) 37 mm/HR 0-32 H [facility] CenterFerritin [Mass/volume] in Serum or [id number] 00:00:00* Test Item Value Reference Range Interpretation Comme nts Ferritin [Mass/volume] in Se rum or Plasma (test code = 2276-4) 29 NG/mL 15-150 [facility] CenterC reactive protein [Mass/volume] in Serum or [id number] 00:00:00* Test Item Value Reference Range Interpretation Comme nts C reactive protein [Mass/vol ume] in Serum or Plasma (test code = 1988-5) 9 mg/L 0-10 [facility] CenterTriiodothyronine (T3) Free [Mass/volume] in Serum or [id number] 00:00:00* Test Item Value Reference Range Interpretation Comme nts Triiodothyronine (T3) Free [Mass/volume] in Serum or Plasma (test code = 3051-0) 2.8 pg/mL 2.0-4.4 [facility] Centercardiovascular mkbgos6967-07-64 00:00:00* Test Item Value Reference Range Interpretation Comme nts Interpretation and review of laboratory results (test code = 90130-9) note Report (test code = 45956-6) . [facility] CenterComprehensive metabolic 2000 panel - Serum or Sgfzle6589-34-49 00:00:00* Test Item Value Reference Range Interpretation Comme nts Glucose [Mass/volume] in Ser um or Plasma (test code = 2345-7) 83 mg/dL 70-99 Urea nitrogen [Mass/volume] in Serum or Plasma (test code = 3094-0) 8 mg/dL 6-20 Creatinine [Mass/volume] in Serum or Plasma (test code = 2160-0) 0.82 mg/dL 0.57-1.00 Glomerular filtration rate/1.73 sq M.predicted [Volume Rate/Area] in Serum, Plasma or Blood by Creatinine-based formula (CKD-EPI 2020) (test code = 31765-7) 95 mL/min/1.73 >59 Urea nitrogen/Creatinine [Ma ss Ratio] in Serum or Plasma (test code = 3097-3) 10 9-23 Sodium [Moles/volume] in Ser um or Plasma (test code = 2951-2) 139 mmol/L 134-144 Potassium [Moles/volume] in Serum or Plasma (test code = 2823-3) 4.8 mmol/L 3.5-5.2 Chloride [Moles/volume] in Serum or Plasma (test code = 2074-0) 104 mmol/L 96-106 Carbon dioxide, total [Moles/volume] in Serum or Plasma (test code = 2027-) 21 mmol/L 20-29 Calcium [Mass/volume] in Ser um or Plasma (test code = 82500-8) 9.2 mg/dL 8.7-10.2 Protein [Mass/volume] in Ser um or Plasma (test code = 2885-2) 6.9 g/dL 6.0-8.5 Albumin [Mass/volume] in Ser um or Plasma (test code = 1751-7) 4.2 g/dL 3.8-4.8 Globulin [Mass/volume] in Serum by calculation (test code = 52049-7) 2.7 g/dL 1.5-4.5 Albumin/Globulin [Mass Ratio ] in Serum or Plasma (test code = 1759-0) 1.6 1.2-2.2 Bilirubin.total [Mass/volume ] in Serum or Plasma (test code = 1974-) 0.3 mg/dL 0.0-1.2 Alkaline phosphatase [Enzymatic activity/volume] in Serum or Plasma (test code = 6768-6) 56 IU/L 44-121 Aspartate aminotransferase [Enzymatic activity/volume] in Serum or Plasma (test code = 1920-8) 11 IU/L 0-40 Alanine aminotransferase [Enzymatic activity/volume] in Serum or Plasma (test code = 1742-6) 10 IU/L 0-32 [facility] Programiron + TIBC + ferritin, serum 2022-08-07 00:00:00* Test Item Value Reference Range Interpretation Comme nts Iron binding capacity [Mass/ volume] in Serum or Plasma (test code = 2500-7) 397 ug/dL 250-450 Iron binding capacity.unsatu rated [Mass/volume] in Serum or Plasma (test code = 2501-5) 360 ug/dL 131-425 Iron [Mass/volume] in Serum or Plasma (test code = 2498-4) 37 ug/dL 27-159 Iron saturation [Mass Fracti on] in Serum or Plasma (test code = 2502-3) 9 % 15-55 L Ferritin [Mass/volume] in Se rum or Plasma (test code = 2276-4) 12 NG/mL 15-150 L [facility] CenterCB W Auto Differential panel - Blood 2022-08-07 00:00:00* Test Item Value Reference Range Interpretation Comme nts Leukocytes [#/volume] in Blo od by Automated count (test code = 6690-2) 7.2 x10e3/uL 3.4-10.8 Erythrocytes [#/volume] in Blood by Automated count (test code = 789-8) 4.81 x10e6/uL 3.77-5.28 Hemoglobin [Mass/volume] in Blood (test code = 718-7) 12.2 g/dL 11.1-15.9 Hematocrit [Volume Fraction] of Blood by Automated count (test code = 4544-3) 39.7 % 34.0-46.6 Erythrocyte mean corpuscular volume [Entitic volume] by Automated count (test code = 787-2) 83 fL 79-97 Erythrocyte mean corpuscular hemoglobin [Entitic mass] by Automated count (test code = 785-6) 25.4 pg 26.6-33.0 L Erythrocyte mean corpuscular hemoglobin concentration [Mass/volume] by Automated count (test code = 786-4) 30.7 g/dL 31.5-35.7 L Erythrocyte distribution wid th [Ratio] by Automated count (test code = 788-0) 14.3 % 11.7-15.4 Platelets [#/volume] in Bloo d by Automated count (test code = 777-3) 477 x10e3/uL 150-450 H Neutrophils/100 leukocytes i n Blood by Automated count (test code = 770-8) 60 % not estab. Lymphocytes/100 leukocytes i n Blood by Automated count (test code = 736-9) 32 % not estab. Monocytes/100 leukocytes in Blood by Automated count (test code = 5905-5) 6 % not estab. Eosinophils/100 leukocytes i n Blood by Automated count (test code = 713-8) 2 % not estab. Basophils/100 leukocytes in Blood by Automated count (test code = 706-2) 0 % not estab. 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 [facility] ProgramHemoglobin A1c/Hemoglobin.total in Clzoy8650-15-86 00:00:00* Test Item Value Reference Range Interpretation Comme nts Hemoglobin A1c/Hemoglobin.to corin in Blood (test code = 4548-4) 5.4 % 4.8-5.6 [facility] CenterVaginal pathogens panel - Vaginal fluid by BONNIE with probe lotthqpws7876-30-19 00:00:00* Test Item Value Reference Range Interpretation Comme nts Atopobium vaginae DNA [Prese nce] in Vaginal fluid by BONNIE with probe detection (test code = 50735-6) low - 0 Bacterial vaginosis associat ed bacterium 2 DNA [Presence] in Vaginal fluid by BONNIE with probe detection (test code = 80217-4) low - 0 Megasphaera sp type 1 DNA [P resence] in Vaginal fluid by BONNIE with probe detection (test code = 27189-1) low - 0 Pérez albicans DNA [Presen ce] in Vaginal fluid by BONNIE with probe detection (test code = 49083-0) negative negative Pérez glabrata DNA [Presen ce] in Vaginal fluid by BONNIE with probe detection (test code = 14989-1) negative negative Trichomonas vaginalis DNA [P resence] in Vaginal fluid by BONNIE with probe detection (test code = 93745-7) negative negative Chlamydia trachomatis DNA [P resence] in Vaginal fluid by BONNIE with probe detection (test code = 79437-9) negative negative Neisseria gonorrhoeae DNA [P resence] in Vaginal fluid by BONNIE with probe detection (test code = 37212-3) negative negative [facility] CenterBacteria identified in Urine by Qxjnlus7826-83-82 00:00:00* Test Item Value Reference Range Interpretation Comme nts Bacteria identified in Urine by Culture (test code = 630-4) no growth [facility] CenterUrinalysis macro (dipstick) panel - [id number] 13:45:00* Test Item Value Reference Range Interpretation Comme nts Leukocytes (test code = Leukocytes) neg Nitrite (test code = Nitrite) neg Urobilinogen (test code = Urobilinogen) 0.2 Protein (test code = Protein) 30mg/dl pH (test code = pH) 6.0 Blood (test code = Blood) small Specific [place] (test code = Specific [place]) 1.030 Ketone (test code = Ketone) 5mg/dl Bilirubin (test code = Bilirubin) 5mg/dl Glucose (test code = Glucose) neg [facility]25-Hydroxyvitamin D3+25- Hydroxyvitamin D2 [Mass/volume] in Serum or [id number] 00:00:00* Test Item Value Reference Range Interpretation Comme nts 25-Hydroxyvitamin D3+25-Hydroxyvitamin D2 [Mass/volume] in Serum or Plasma (test code = 64271-6) 36.9 NG/mL 30.0-100.0 [facility] CenterBacteria identified in Urine by Eoxzzsm1934-19-77 00:00:00* Test Item Value Reference Range Interpretation Comme nts Bacteria identified in Urine by Culture (test code = 630-4) no growth [facility] CenterUrinalysis macro (dipstick) panel - [id number] 15:05:00* Test Item Value Reference Range Interpretation Comme nts Leukocytes (test code = Leukocytes) neg Nitrite (test code = Nitrite) neg Urobilinogen (test code = Urobilinogen) 0.2 Protein (test code = Protein) 30mg/dl pH (test code = pH) 6.0 Blood (test code = Blood) neg Specific [place] (test code = Specific [place]) 1.030 Ketone (test code = Ketone) 5 Bilirubin (test code = Bilirubin) 1 Glucose (test code = Glucose) neg [facility] Centerrapid strep group A, ikjyqe0388-10-19 15:46:57* Test Item Value Reference Range Interpretation Comme nts Strep (test code = Strep) negative [facility] RNA [Presence] in Respiratory specimen by BONNIE with probe gwryrerqx0740-79-48 00:00:00* Test Item Value Reference Range Interpretation Comme nts SARS-CoV-2 (COVID-19) RNA [Presence] in Respiratory specimen by BONNIE with probe detection (test code = 73620-6) detected not detected A sars-cov-2, BONNIE 2 day tat (t est code = sars-cov-2, BONNIE 2 day tat) performed [facility] Program- CT C-SPINE W/O [id number] 16:46:00[facility] : 1985 Sex: FPatient Name: NISHI QUINTANILLA Unit No: [id number] EXAMS: CPT: [id number] CT C-SPINE W/O CONT 52454 CT CERVICAL SPINE WITHOUT CONTRAST Comparison: Possible dizziness Clinical History: BILATERAL HAND NUMBNESS Technique: Contiguous axial imaging through the cervical spine performed without intravenous contrast. Sagittal and coronal reformations were performed. Findings: No acute fracture or dislocation seen of the cervical spine. No jumped or perched facets. Paravertebral soft tissues unremarkable. Visualized lung apices clear. Impression: 1. No acute fracture- dislocation identified of the cervical spine. at 1646 Reported and signed by: Raul Crowell MD CC: Les Brenner NP Technologist: Jeff Rouse CTDI: 12.75 DLP: 285. 78 Trscr Dt/Tm: 03/01/2021 (1645) by:[email or web address] Orig Print D/T: S: 03/01/2021 (1649) BATCH NO: N/AName: NEELNISHI MELONY [facility] Phys: Les Kraus NP [address] : 1985 Age: 35 Sex: F [place] [id number] Loc: N.ERS Exam Date: 03/01/2021 Status: REG ER PH: FAX: PAGE 1 Signed Report Notes Date/Time Note Provider Source 2024-04-30 16:26:49 Attempted to contact patient. No answer, VM left. Francisco J Colunga RN 04/30/2024 4:26 PM ETARY BOOKKEEPER Francisco J Colunga RN [facility] 2024-04-29 10:23:09 Pt is experiencing abnormal vaginal bleeding and cramping. Pt would like to see mendoza but there were no appts until late may. She scheduled with ENGINEER THIRD ASSISTANT mikayla, may 18 but would like some advice on what she should do about the bleeding if she cannot get in any sooner than may 18. [facility] Dulce [facility] 2024-02-09 14:15:18 Name and verified. Results given and verbalized understanding. AMERICA MARINO RN 02/09/2024 2:17 PM ETARY BOOKKEEPER America Marino RN [facility] 2024-02-09 14:00:33 Pt calling back. [facility] 2024-02-09 13:54:59 LM on for pt to return call. AMERICA MARINO RN 02/09/2024 1:55 PM [facility] 2024-02-09 10:02:54 Nishi Quintanilla is a 38 year old female pt called would like to discuss results from last visit. Pt would like a call back please. ETARY BOOKKEEPER Meggan Castro [facility] 2024-01-30 08:15:00 Images from the original note were not included. Venipuncture collection performed by clean technique on the right anticubitus. Total of 1 attempts were made. Slight pressure and a bandage/dressing were applied to the site(s). The patient experienced no complications. The following specimens were processed according to instructions and sent to [facility] laboratories per lab order on 01/30/2024 : LT BLUE SST 2 RED 1 LAV PPT DK GREEN (LiHep) DK GREEN (SodH) MOREIRA DK BLUE (K2) DK BLUE (S) ACD Blood Culture NIPT/NTD [facility] 2023-12-09 14:42:31 See result note Rebeca Velazco RN 12/09/2023 2:42 PM Rebeca Velazco RN [facility] 2023-12-09 14:25:56 Pt returning the call of the nurse regarding her us results, pls call pt back. Magdalena Reich [facility] 2023-12-08 11:00:00 The ultrasound shows enlarged uterine fibroids. 3 noted the largest 6.2 cm. Normal ovaries. [facility] 2023-12-01 16:30:09 Name and verified, pt is aware of U/S order in place and they will call her to schedule an appt. Pt verbalized understanding. Rebeca Velazco RN 12/01/2023 4:30 PM [facility] 2023-12-01 16:16:43 Sure please order a repeat US [facility] 2023-12-01 13:34:12 Patient is following up on message that was sent 11/27. Patient is requesting an ultrasound. Angela Nimco Bonny [facility] 2023-11-28 09:41:10 Pt requesting a referral for US Pelvis before setting up a f/up appt. Magdalena Reich [facility] 2023-10-23 07:18:54 05/13/23: Pap/HPV negative. G/c negative. T [facility] 2023-10-22 13:27:55 Medical records received for pap results from [facility]. Placed on providers desk for review and signature. Unique Chandler [facility] 2023-10-22 08:16:27 I will work on getting the pap records today. Unique Chandler [facility] 2023-10-21 16:29:26 Reviewed, US reports present. No pap records, still need. T [facility] 2023-10-21 16:23:27 Medical records received by fax from [facility] and placed on provider's desk for review and signature. [facility] 2021-03-01 21:07:00 [facility] EMERGENCY PROVIDER REPORT REPORT#:[id number] REPORT STATUS: Signed DATE:03/01/21 TIME: 2106 PATIENT: NISHI QUINTANILLA UNIT #: [id number] ROOM: BED: AGE: 35 SEX: F PCP PHYS: No Primary or Family Physician SERVICE AUTHOR: Melo Villa DO * ALL edits or amendments must be made on the electronic/computer document * HPI-Neurologic Deficit Free Text HPI Notes Free Text HPI Notes Patient is a very pleasant 35-year-old female who complains of numbness and pain the ulnar aspect of her right and left wrist hand and lower forearm. It started about 4 days ago. There is been no trauma. She has no headaches. No fevers. No history of hypothyroidism rheumatoid arthritis or diabetes General Confirmed Patient Yes Patient Type New patient Initial Greet Date/Time 03/01/21 1511 Provider in Triage HPI Chief Complaint NECK PAIN BILATERAL HAND NUMBNESS Presentation Chief Complaint Numbness arm Review of Systems Free Text ROS Notes Free Text ROS Notes Review of Systems All systems reviewed and negative except as marked. GEN: Reports no fever, reports no malaise, reports no gen weakness EYES: Reports no blurred vision, reports no eye pain, reports no visual loss EAR: Reports no ear pain, reports no hearing loss, reports no tinnitus NOSE: Reports no bleeding, reports no nasal congestion THROAT: Reports no pain, reports no swelling, reports no toothache RESP: Reports no cough, reports no SOB, reports no wheezing CV: Reports no CP, reports no GUERRERO, reports no palpitations GI: Reports no abd pain, reports no diarrhea, reports no vomiting : Reports no dysuria, reports no lesions, reports no discharge MS: Reports no back pain, reports no neck pain, reports extremity pain HEME: Reports no bleeding, reports no bruising ENDO: Reports no wt change, reports no polyuria, reports no polydipsia SKIN: Reports no abrasions, reports no contusions, reports no rash ALLERGY: Reports no itching, reports no allergic reaction NEURO: Reports no focal weakness, reports no VASQUEZ, reports no SZ PSYCH: Reports no anxiety, reports no delusions, reports no hallucinations Past Medical History - Adult 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 Alcohol Use Denies EtOH use Drug Use Denies recreational drugs Smoking status: Smoking status for patients 13 years old or older: Unknown,if ever smoked Physical Exam Vital Signs Vital Signs First Documented: Result Date Time Pulse Ox 98 03/01 1511 B/P 133/85 03/01 1511 B/P Mean 101 03/01 1511 O2 Delivery Room air 03/01 151 Temp 98.0 03/01 151 Pulse 88 03/01 151 Resp 18 03/01 151 Last Documented: Result Date Time Pulse Ox 98 03/01 1511 B/P 133/85 03/01 1511 B/P Mean 101 03/01 151 O2 Delivery Room air 03/01 151 Temp 98.0 03/01 151 Pulse 88 03/01 151 Resp 18 03/01 1511 Review of Vital Signs Reviewed Focused PE General/Const General/Const Awake, Alert MS Head Head Normocephalic Eyes Eyes PERRL, EOMI Ears/Nose/Throat Ears/Nose/Throat Airway patent, Mucous membranes moist, Pharynx NL, No facial swelling MS Neck Neck Atraumatic, Supple, No meningismus, Full range of motion, No swelling, Non-tender, No midline vertebral tend, No carotid bruit Resp/Chest Respiratory/Chest Breath sounds NL, Breath sounds = bilat, No respiratory distress, No rales, No rhonchi, No wheezing Cardiovascular Cardiovascular Heart rate NL, Regular rhythm, Heart sounds NL, Peripheral circulation NL Abdomen/GI Abdomen/GI Soft, Non-tender, No guarding, No rebound MS Back Back Inspection NL, Non-tender, No CVA tenderness MS Upper Extrem Upper Extremity/MS Inspection NL, Full range of motion, No swelling, No erythema Text/Dict Notes I can elicit this patient's symptoms with percussion at the cubital tunnel of both elbows MS Lower Extrem Lower Ext/Pelvis/MS Inspection NL, No swelling, Non-tender, No erythema, No deformity, Neurologic intact, Vascular intact, No edema Skin Skin Color NL, Warm, Dry, Turgor NL Rectum Rectum/Perineum Blood - occult heme neg, network control operator passed, No gross blood, No fissures, No hemorrhoids, Sphincter tone NL Neurologic Neurologic Oriented X3, Speech NL, No motor deficits, No sensory deficits, CN II - XII intact, Reflexes equal bilat, Cerebellar NL Psychiatric Psychiatric Affect NL, Mood NL, Thought content NL Interpretation Diagnostics Lab Results Interpretation Results Recent Impressions: CAT SCAN - CT C-SPINE W/O CONT 03/01 1620 Report Impression - Status: SIGNED Entered: 03/01/2021 1649 Impression: 1. No acute fracture-dislocation identified of the cervical spine. Impression [facility]: [facility] [id number] - Raul Crowell MD Imaging Statement Radiographic studies reviewed and considered in the medical decision-making. Point of Care Testing Pulse Oximetry Pulse Ox % 100 On: Room air Interpretation Interpreted by me, Pulse oximetry normal Re-Evaluation MDM Free Text MDM Notes Free Text MDM Notes Discussed with patient importance of follow-up. I told her if this not taking care of she certainly could have atrophy to the muscles of her hand and forearm Patient Discharge Departure Vital Signs/Condition Vital Signs First Documented: Result Date Time Pulse Ox 98 03/01 151 B/P 133/85 03/01 151 B/P Mean 101 03/01 151 O2 Delivery Room air 03/01 151 Temp 98.0 03/01 151 Pulse 88 03/01 151 Resp 18 03/01 1511 Last Documented: Result Date Time Pulse Ox 98 03/01 1511 B/P 133/85 03/01 151 B/P Mean 101 03/01 151 O2 Delivery Room air 03/01 1511 Temp 98.0 03/01 1511 Pulse 88 03/01 1511 Resp 18 03/01 151 All vital signs available at the time of this entry have been reviewed. Clinical Impression Clinical Impression Primary Impression: Cubital tunnel syndrome of both upper extremities Disposition Decision Discharge )( Discharged to Home Yes )( Time 2109 )( Date 03/01/21 Discharge/Care Plan Counseled Regarding Diagnosis, Imaging studies, Need for follow-up (Auto) Prescriptions Current Visit Scripts Hydrocodone/Apap ([place] 10/325) 1 TAB PO Q6H PRN PRN pain Hydrocodone/Apap ([place] 10/325) 1 TAB PO Q6H PRN PRN pain #15 TABS Ibuprofen (Motrin) 800 MG PO TID PRN PRN PAIN Ibuprofen (Motrin) 800 MG PO TID PRN PRN PAIN #30 TABS Gabapentin (Neurontin) 300 MG PO TID PRN pain Gabapentin (Neurontin) 300 MG PO TID PRN pain #30 CAPS Prescriptions Reviewed Risks, Benefits, Alternative treatment Patient Instructions ED Carpal Tunnel Syndrome Referrals Ruddy Stanford MD Discharge Note I have spoken with the patient and/or caregivers. I have explained the patient's condition, diagnoses and treatment plan based on the information available to me at this time. I have answered the patient's and/or caregiver's questions and addressed any concerns. The patient and/or caregivers have as good an understanding of the patient's diagnosis, condition and treatment plan as can be expected at this point. The vital signs have been stable. The patient's condition is stable and appropriate for discharge from the emergency department. The patient will pursue further outpatient evaluation with the primary care physician or other designated or consulting physician as outlined in the discharge instructions. The patient and/or caregivers are agreeable to this plan of care and follow-up instructions have been explained in detail. The patient and/or caregivers have received these instructions in written format and have expressed an understanding of the discharge instructions. The patient and/or caregivers are aware that any significant change in condition or worsening of symptoms should prompt an immediate return to this or the closest emergency department or a call to 911. at [phone] [facility] #:[phone] END OF REPORT [facility] 2021-02-09 15:12:00 [facility] ([facility]) EMERGENCY PROVIDER REPORT REPORT#:[id number] REPORT STATUS: Signed DATE:02/09/21 TIME: 151 PATIENT: NISHI QUINTANILLA UNIT #: [id number] ROOM: BED: AGE: 35 SEX: F PCP PHYS: No Primary or Family Physician SERVICE AUTHOR: America Nagel MD * ALL edits or amendments must be made on the electronic/computer document * HPI-General Illness Free Text HPI Notes Free Text HPI Notes Patient is a 35-year-old female with past medical history of obesity, who presents for 3 days of rectal pain with defecation and 1 day of noting streaks of blood when she wipes. She is concerned she may have a hemorrhoid. Denies constipation, diarrhea, fever, abdominal pain, cough, shortness of breath, sore throat, or dysuria. General Initial Greet Date/Time 02/09/21 1100 Provider in Triage HPI Chief Complaint Rectal pain, bleeding Presentation Chief Complaint rectal bleeding Review of Systems Free Text ROS Notes Free Text ROS Notes Constitutional: Denies fevers or chills Eyes: Denies visual disturbances ENMT: Denies sore throat Respiratory: Denies SOB Cardiac: Denies chest pain GI: Denies abdominal pain, nausea, vomiting, bloody diarrhea. Reports rectal pain and no bleeding. : Denies dysuria Musculoskeletal: Denies myalgias Neurologic: Denies headaches, numbness, tingling, or weakness Psychiatric: Denies agitation Skin: Denies wounds or rashes Past Medical History - Adult Stated Complaint HEMMORHOID PAIN AND BLEEDING Allergies Coded Allergies: No Known Allergies (02/09/21) Past Medical History: Denies: Diabetes mellitus, Hypertension. Alcohol Use Denies EtOH use Drug Use Denies recreational drugs Smoking status: Smoking status for patients 13 years old or older: Current some day smoker Physical Exam Vital Signs Vital Signs First Documented: Result Date Time Pulse Ox 98 02/09 1054 B/P 146/92 02/09 1054 B/P Mean 110.0 02/09 1054 Temp 36.8 02/09 1054 Pulse 85 02/09 1054 Resp 18 02/09 1054 O2 Delivery Room air 02/09 1545 Last Documented: Result Date Time Pulse Ox 100 02/09 1545 B/P 135/76 02/09 1545 B/P Mean 95 02/09 1545 O2 Delivery Room air 02/09 154 Temp 36.7 02/09 1545 Pulse 80 02/09 1545 Resp 18 02/09 1545 Review of Vital Signs Reviewed Free Text PE Notes Free Text PE Notes GENERAL: Alert, oriented. In no acute distress. Interactive, follows commands. Responds appropriately to questions. EYES: PERRLA, EOM intact, clear conjunctiva and sclera, no nystagmus. HENT: No LAD. No tonsillar exudate or oropharyngeal erythema or edema. Neck supple, no rigidity. CHEST: Lungs clear to auscultation bilaterally, no distress. No chest wall tenderness. CARDIOVASCULAR: Radial pulses 2+ bilaterally and symmetric, normal heart sounds, normal pulses in all extremities, regular rate rhythm, no ectopy, no murmurs or muffled heart sounds. ABDOMEN: Soft, no tenderness with palpation, no guarding, no rebound, no distention. Normoactive bowel sounds. No masses. RECTAL: 2 cm external hemorrhoid, enlarged but not thrombosed. No active bleeding BACK/SPINE: No midline vertebral or paraspinal tenderness with palpation. No CVA tenderness. EXTREMITIES: No obvious deformities or wounds. Full, painless range of motion of all extremities. No edema. SKIN: No rashes or lesions. Warm, dry. NEURO: AAOX3. CN II-XII grossly intact. Sensation grossly intact. Strength 5/5 in bilateral UE and LE. Normal gait. PSYCH: Appropriate mood and affect. Re-Evaluation MDM Free Text MDM Notes Free Text MDM Notes Patient is a 35-year-old female with past medical history of obesity, who presents for 2 days of rectal pain with defecation and 1 day of noting streaks of blood when she wipes. Prescribed hemorrhoidal cream. Advised patient to f/u with GI. Patient Discharge Departure Vital Signs/Condition Vital Signs First Documented: Result Date Time Pulse Ox 98 02/09 1054 B/P 146/92 02/09 1054 B/P Mean 110.0 02/09 1054 Temp 36.8 02/09 1054 Pulse 85 02/09 1054 Resp 18 02/09 1054 O2 Delivery Room air 02/09 154 Last Documented: Result Date Time Pulse Ox 100 02/09 1545 B/P 135/76 02/09 1545 B/P Mean 95 02/09 1545 O2 Delivery Room air 02/09 1545 Temp 36.7 02/09 154 Pulse 80 02/09 1545 Resp 18 02/09 1545 All vital signs available at the time of this entry have been reviewed. Condition Stable, Improved Clinical Impression Clinical Impression Primary Impression: External hemorrhoid Secondary Impressions: Rectal bleeding Disposition Decision Discharge )( Discharged to Home Yes )( Time 1538 )( Date 02/09/21 Discharge/Care Plan Counseled Regarding Diagnosis, Need for follow-up, When to return to ED (Auto) Prescriptions Current Visit Scripts Hydrocortisone/Pramoxine (Analpram Hc 2.5%-1%) 1 APPLIC RECTAL TID Hydrocortisone/Pramoxine (Analpram Hc 2.5%-1%) 1 APPLIC RECTAL TID #48 GM Bisacodyl Ec (Dulcolax Ec) 5 MG PO BEDTIME Bisacodyl Ec (Dulcolax Ec) 5 MG PO BEDTIME #30 TABS Patient Instructions ED Hemorrhoids Additional Instructions Please follow up with a newspaper delivery driver or general surgeon for removal of your hemorrhoid. Increase fiber and water intake. Try sitz baths for pain relief , that you can purchase at [email or web address], [place]. Referrals Abel Salcido MD Discharge Note I have spoken with the patient and/or caregivers. I have explained the patient's condition, diagnoses and treatment plan based on the information available to me at this time. I have answered the patient's and/or caregiver's questions and addressed any concerns. The patient and/or caregivers have as good an understanding of the patient's diagnosis, condition and treatment plan as can be expected at this point. The vital signs have been stable. The patient's condition is stable and appropriate for discharge from the emergency department. The patient will pursue further outpatient evaluation with the primary care physician or other designated or consulting physician as outlined in the discharge instructions. The patient and/or caregivers are agreeable to this plan of care and follow-up instructions have been explained in detail. The patient and/or caregivers have received these instructions in written format and have expressed an understanding of the discharge instructions. The patient and/or caregivers are aware that any significant change in condition or worsening of symptoms should prompt an immediate return to this or the closest emergency department or a call to 911. at [address] [facility] #:[phone] END OF REPORT HCANW
[2024-12-25 15:41] LABS: Absolute Lymphocytes (CBC) 2.4 K/uL (0.7-4.9); Hematocrit 36.6 % (36.0-45.0); Hemoglobin 12.0 g/dL (12.0-15.0); MCH 25.6 pg (27.0-35.0); MCHC 32.9 g/dL (32.0-36.0); MCV 77.7 fL (80-100); MPV 7.3 fL (7.6-11.3); Nucleated RBC Absolute Count 0.0 (0-0); Nucleated Red Blood Cells % 0.1 % (0-0); RBC Red Blood Cell Count 4.71 M/uL (3.86-4.86); White Blood Count 7.50 thou/uL (4.3-10.9)
[2024-12-25] MEDS ORDERED: FAMOTIDINE 20 MG/2 ML VIAL IV ONE (15:43)
[2024-12-25] MEDS ORDERED: NA CHLORIDE 0.9% 1,000 ML ONE (15:43)
[2024-12-25] MEDS ORDERED: ONDANSETRON 4 MG/2 ML VIAL ONE (15:43)
[2024-12-25 16:11] LABS: ALT/SGPT 19 U/L (13-56); AST/SGOT 13 U/L (15-37); Albumin 3.8 g/dL (3.4-5.0); Albumin/Globulin Ratio 0.8 (1.1-1.8); Alkaline Phosphatase 62 U/L (45-117); Anion Gap 8.9 mEq/L (5.0-15.0); BUN Blood Urea Nitrogen 7 mg/dL (7-18); Globulin 4.6 g/dL (2.3-3.5); Glucose Level 83 mg/dL (74-106); Magnesium 2.0 mg/dL (1.6-2.4); Potassium 3.9 mEq/L (3.5-5.1)
[2024-12-25 16:23] LABS: Bilirubin Indirect, Calculated 0.2 mg/dL (0.2-0.8)
[2024-12-25 16:24] LABS: Troponin High Sensitivity < 3.0 pg/mL (<58.9)
--- NOTE | 2024-12-25 17:13 | RAD REPORT ---
EXAM: CT CHEST, ABDOMEN AND PELVIS WITH CONTRAST CLINICAL INDICATION: abd pain, chest pain, pelvic pain TECHNIQUE: CT chest, abdomen and pelvis was performed, following the administration of contrast, as p er department protocol. Axial, sagittal and coronal reconstructions were obtained. One or more of the following dose reduction techniques were used: Automated exposure control, adjustment of the mA a nd/or kV according to patient size, and/or iterative reconstruction. Unless otherwise specified, incidental findings do not require dedicated imaging follow-up. COMPARISON: No prior exam. FINDINGS: LUNGS: No evidence of airspace or interstitial process. No nodules. Small hiatal hernia. PLEURA: No pleural effusion. No pneumothorax. MEDIASTINUM AND LYMPH NODES: Mildly prominent bilateral axillary and mediastinal lymph nodes. OSSEOUS STRUCTURES AND CHEST WALL: Intact. LIVER: Mild fatty liver. Grossly unremarkable gallbladder. PANCREAS: No mass, ductal dilation, or cuco-pancreatic fluid. SPLEEN: Normal size. No focal lesion. ADRENALS: Normal; no mass. KIDNEYS: Normal size and contour. No hydronephrosis. URINARY BLADDER: Normal contour. GASTROINTESTINAL TRACT: No bowel obstruction, free air, significant free fluid or abscess. APPENDIX: Normal appendix. LYMPH NODES: No lymphadenopathy. MUSCULOSKELETAL: Mild multilevel spinal degenerative changes. OTHER: Small fat-containing umbilical hernia. Enlarged uterus containing multiple masses likely fibroids. IMPRESSION: No acute abnormalities seen in the chest, abdomen or pelvis. Leiomyomatous uterus.
--- NOTE | 2024-12-25 17:32 | ER ---
Nurse's Notes [facility] Name: Nishi Quintanilla Age: 39 yrs Sex: Female : 1985 Arrival Date: 12/25/2024 Time: 14:36 Bed 19 Private MD: Diagnosis: Upper abdominal pain, unspecified Presentation: 12/25 14:44 Chief complaint: Patient states: bilateral upper abdominal pain that is "tight" and me1 radiates to bilateral upper back with nausea for about a week. Yesterday started having midsternal chest pain with some SOB. Reports an increase in stress level lately. Coronavirus screen: Vaccine status: Patient reports being unvaccinated. Ebola Screen: No symptoms or risks identified at this time. Initial Sepsis Screen: Does the patient meet any 2 criteria? HR > 90 bpm. Does the patient have a suspected source of infection? No. Patient's initial sepsis screen is negative. Risk Assessment: Do you want to hurt yourself or someone else? Patient reports no desire to harm self or others. Onset of symptoms was December 18, 2024. 14:44 Method Of Arrival: Ambulatory [facility] 14:44 Acuity: NYA 3 me1 VP BIOLOGY: 14:47 LMP N/A - control method, Not me1 Historical: - Allergies: 14:47 Cipro PO; me1 14:47 Nitrofurantoin Macrocrystal; me1 - PMHx: 14:47 uterine fibroids; me1 - PSHx: 14:47 section; Ligation of fallopian tube; me1 - Immunization history:: Adult Immunizations up to date. - Infectious Disease History:: Denies. - Social history:: Smoking status: Patient denies any tobacco usage or history of. Screenin:52 [facility] ED Fall Risk Assessment (Adult) History of falling in the last 3 months, rg5 including since admission No falls in past 3 months (0 pts) Confusion or Disorientation No (0 pts) Intoxicated or Sedated No (0 pts) Impaired Gait No (0 pts) Mobility Assist Device Used No (0 pt) Altered Elimination No (0 pt) Score/Fall Risk Level 0 - 2 = Low Risk Oriented to surroundings, Maintained a safe environment, Provided non-skid footwear. Abuse screen: Denies threats or abuse. Nutritional screening: No deficits noted. Tuberculosis screening: No symptoms or risk factors identified. Assessment: 15:52 General: Appears in no apparent distress. uncomfortable, Behavior is calm, cooperative, rg5 appropriate for age. Pain: Complains of pain in chest and abdomen Pain radiates to back Pain began gradually. Neuro: Level of Consciousness is awake, alert, obeys commands. Cardiovascular: Reports chest pain, Patient's skin is warm and dry. Respiratory: Airway is patent Respiratory effort is even, unlabored, Respiratory pattern is regular. GI: Abdomen is round obese, Reports lower abdominal pain, upper abdominal pain, nausea. : No signs and/or symptoms were reported regarding the genitourinary system. EENT: No signs and/or symptoms were reported regarding the EENT system. 16:30 Reassessment: Patient and/or family updated on plan of care and expected duration. Pain rg5 level reassessed. Patient is alert, oriented x 3, equal unlabored respirations, skin warm/dry/pink. 17:24 Reassessment: Patient and/or family updated on plan of care and expected duration. Pain rg5 level reassessed. Patient is alert, oriented x 3, equal unlabored respirations, skin warm/dry/pink. Patient states feeling better. Patient states symptoms have improved. Vital Signs: 14:44 BP 131 / 85; Pulse 97; Resp 18; Temp 98.2; Pulse Ox 100% ; Weight 113.4 kg; Height 5 me1 ft. 2 in. ; Pain 7/10; 15:50 BP 120 / 77; Pulse 75; Resp 18; Pulse Ox 99% ; Pain 0/10; rg5 16:30 BP 132 / 69; Pulse 74; Resp 18; Pulse Ox 100% ; rg5 17:15 BP 137 / 81; Pulse 90; Resp 18; Pulse Ox 96% ; rg5 14:44 Body Mass Index 45.73 (113.40 kg, 157.48 cm) me1 14:44 Pain Scale: Adult me1 15:50 Pain Scale: Adult rg5 ED Course: 14:38 Patient arrived in ED. cj3 14:41 Paula Rodgers PA-C is PHCP. sb4 14:41 Trevor Mike MD is Attending Physician. sb4 14:47 Triage completed. me1 14:47 Arm band placed on Patient placed in waiting room. me1 14:57 EKG done, by ED staff, reviewed by Paula Rodgers PA-C. me1 15:15 Initial lab(s) drawn, by me, sent to lab. Inserted saline lock: 22 gauge in right iw antecubital area, using aseptic technique. Blood collected. Flushed with 10 mL NS. 15:35 Test, Urine Sent. iw 15:37 Juan Carlos Gallegos, RN is Primary Nurse. rg5 15:52 Patient has correct armband on for positive identification. Bed in low position. Call rg5 light in reach. Side rails up X 1. Client placed on continuous cardiac and pulse oximetry monitoring. NIBP monitoring applied. secured entrance monitor on. Pulse ox on. NIBP on. Door closed. Noise minimized. 15:52 No provider procedures requiring assistance completed. rg5 15:52 Patient maintains SpO2 saturation greater than 95% on room air. rg5 17:02 Chest Abdomen Pelvis W Cont In Process Unspecified. EDMS 17:44 IV discontinued, bleeding controlled, No redness/swelling at site. Pressure dressing rg5 applied. 17:45 Provided Education on: post er care. rg5 Administered Medications: 15:51 Drug: Famotidine IVP 20 mg IVP once; dilute with 10 mL 0.9% NaCl; give over 2 minutes rg5 Route: IVP; Site: right antecubital; 17:22 Follow up: Response: No adverse reaction rg5 15:51 Drug: Ondansetron IVP 4 mg IVP once; over 2 minutes Route: IVP; Site: right antecubital;rg5 17:22 Follow up: Response: No adverse reaction rg5 15:52 Drug: NS 0.9% IV 1000 ml IV at 1000 ml once; to be given as a bolus over 60 minutes rg5 Route: IV; Rate: 1000 ml; Site: right antecubital; 17:35 Follow up: IV Status: Completed infusion rg5 Medication: 15:52 VIS not applicable for this client. rg5 Outcome: 17:31 Discharge ordered by . sb4 17:44 Discharged to home via ambulance, rg5 17:44 Condition: stable 17:44 Discharge instructions given to patient, Instructed on discharge instructions, Demonstrated understanding of instructions, follow-up care, Prescriptions given X 2, 17:46 Patient left the ED. rg5 Signatures: Dispatcher [employer] EDMS Sade Retana, RN RN iw Paula Rodgers PA-C PAIkerC sb4 Shelia Aguirre, KIM RN me1 Juan Carlos Gallegos RN RN rg5 Tania Rothman 3 Corrections: (The following items were deleted from the chart) 16:01 15:50 BP 104 / 74; Pulse 75bpm; Resp 18bpm; Pulse Ox 99%; Pain 0/10, Adult; rg5 rg5 16:01 14:45 BP 105 / 62; Pulse 68bpm; Resp 18bpm; Pulse Ox 100%; rg5 rg5
--- NOTE | 2024-12-25 17:33 | EDPHYS ---
Physician Documentation [facility] Name: Nishi Quintanilla Age: 39 yrs Sex: Female : 1985 Arrival Date: 12/25/2024 Time: 14:36 Bed 19 Private MD: MICHOACANO Physician Trevor Mike HPI: 12/25 14:54 This 39 yrs old Black Female presents to ER via Ambulatory with complaints of Chest sb4 Pain, Abdominal Pain. 14:54 Patient reports upper abdominal pain for about a week now. She states that now it is sb4 starting to radiate around to her back and upper chest. She states that sometimes it feels like a burning sensation and sometimes it feels like a sharp stabbing pain. Denies any vomiting or diarrhea. Does endorse nausea. States that is not any better or worse with eating. States that her mom was recently diagnosed with pancreatic cancer. Denies any medical history. 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 - Infectious Disease History:: Denies. - Social history:: Smoking status: Patient denies any tobacco usage or history of. ROS: 14:54 Constitutional: Negative for fever, chills, and weight loss, sb4 14:54 Abdomen/GI: Positive for abdominal pain, nausea, 14:54 All other systems are negative, Exam: 14:54 Constitutional: This is a well developed, well nourished patient who is awake, alert, sb4 and in no acute distress. Head/Face: Normocephalic, atraumatic. Eyes: Extra-ocular motions intact. Periorbital areas with no swelling, redness, or edema. ENT: Mucous membranes moist. Cardiovascular: Regular rate and rhythm with a normal S1 and S2. Respiratory: No increased work of breathing, no retractions or nasal flaring. Abdomen/GI: Soft, non-tender, no distension. Skin: Warm, dry with normal turgor. Normal color with no rashes, no lesions, and no evidence of cellulitis. Vital Signs: 14:44 BP 131 / 85; Pulse 97; Resp 18; Temp 98.2; Pulse Ox 100% ; Weight 113.4 kg; Height 5 me1 ft. 2 in. ; Pain 7/10; 15:50 BP 120 / 77; Pulse 75; Resp 18; Pulse Ox 99% ; Pain 0/10; rg5 16:30 BP 132 / 69; Pulse 74; Resp 18; Pulse Ox 100% ; rg5 17:15 BP 137 / 81; Pulse 90; Resp 18; Pulse Ox 96% ; rg5 14:44 Body Mass Index 45.73 (113.40 kg, 157.48 cm) me1 14:44 Pain Scale: Adult me1 15:50 Pain Scale: Adult rg5 MDM: 14:42 Medical Screening Exam initiated sb4 14:55 Differential diagnosis: Peptic ulcer disease, GERD, gastritis, pancreatitis, sb4 cholelithiasis, cholecystitis, fatty liver disease. 17:33 Data reviewed: vital signs, nurses notes, lab test result(s), EKG, radiologic studies, sb4 and as a result, I will discharge patient. Counseling: I had a detailed discussion with the patient and/or guardian regarding the historical points, exam findings, and any diagnostic results supporting the discharge/admit diagnosis, the presence of at least one elevated blood pressure reading (>120/80) during this emergency department visit, lab results, radiology results, the need for outpatient follow up, for definitive care, a superintendent pressure, to return to the emergency department if symptoms worsen or persist or if there are any questions or concerns that arise at home. Special discussion: Based on the patient's Hx, exam, and Dx evaluation, there is no indication for emergent surgery or inpatient Tx. It is understood by the patient/guardian that if the Sx's persist or worsen they need to return immediately for re-evaluation. 12/25 14:50 Order name: Basic Metabolic Panel; Complete Time: 16:24 sb4 12/25 14:50 Order name: CBC with Diff; Complete Time: 15:56 sb4 12/25 14:50 Order name: LFT's; Complete Time: 16:24 sb4 12/25 14:50 Order name: Magnesium; Complete Time: 16:24 sb4 12/25 14:50 Order name: Troponin HS; Complete Time: 16:24 sb4 12/25 15:30 Order name: Test, Urine; Complete Time: 15:47 iw 12/25 16:57 Order name: Chest Abdomen Pelvis W Cont; Complete Time: 17:14 EDMS 12/25 14:50 Order name: EKG; Complete Time: 14:50 sb4 12/25 14:50 Order name: Cardiac monitoring; Complete Time: 15:52 sb4 12/25 14:50 Order name: EKG - Nurse/Tech; Complete Time: 14:57 sb4 12/25 14:50 Order name: IV Saline Lock; Complete Time: 15:30 sb4 12/25 14:50 Order name: Labs collected and sent; Complete Time: 15:30 sb4 12/25 14:50 Order name: O2 Per Protocol; Complete Time: 15:52 sb4 12/25 14:50 Order name: O2 Sat Monitoring; Complete Time: 15:52 sb4 12/25 17:15 Order name: PO challenge; Complete Time: 17:33 sb4 EC:56 Rate is 87 beats/min. Rhythm is regular, Normal Sinus Rhythm. [place] interval is normal at sb4 116 msec. QRS interval is normal at 74 msec. QT interval is normal at 376 msec. No Q waves. T waves are Normal. No ST changes noted. Clinical impression: Normal ECG. Interpreted by me. Reviewed by me. Administered Medications: 15:51 Drug: Famotidine IVP 20 mg IVP once; dilute with 10 mL 0.9% NaCl; give over 2 minutes rg5 Route: IVP; Site: right antecubital; 17:22 Follow up: Response: No adverse reaction rg5 15:51 Drug: Ondansetron IVP 4 mg IVP once; over 2 minutes Route: IVP; Site: right antecubital;rg5 17:22 Follow up: Response: No adverse reaction rg5 15:52 Drug: NS 0.9% IV 1000 ml IV at 1000 ml once; to be given as a bolus over 60 minutes rg5 Route: IV; Rate: 1000 ml; Site: right antecubital; 17:35 Follow up: IV Status: Completed infusion rg5 Disposition Summary: 12/25/24 17:31 Discharge Ordered Notes: Location: Home sb4 Problem: new sb4 Symptoms: have improved sb4 Condition: Stable sb4 Diagnosis - Upper abdominal pain, unspecified sb4 Followup: sb4 - With: Private Physician - When: As needed - Reason: Recheck today's complaints, Re-evaluation by your physician Discharge Instructions: - Discharge Summary Sheet sb4 - Abdominal Pain, Adult sb4 - Peptic Ulcer, [id number] sb4 Forms: - Patient Portal Instructions sb4 - Leadership Thank You Letter sb4 Prescriptions: - ondansetron 4 mg Oral Tablet,disintegrating - take 1 tablet ORAL route every 6 hours as needed for nausea and vomiting; 10 sb4 tablet; Refills: 0, Product Selection Permitted - Protonix 40 mg Oral Tablet - take 1 tablet ORAL route once daily; 30 tablet; Refills: 0, Product Selection sb4 Permitted Signatures: Dispatcher [employer] Paula White, MAVIS GAMBLE sb4 Shelia Aguirre, RN RN me1 Juan Carlos Gallegos RN RN rg5 Corrections: (The following items were deleted from the chart) 16:57 14:50 Chest Abdomen W/ Con+CT.RAD.BRZ ordered. EDMS PRINCE
[2024-12-25 21:37] VITALS: TEMP 98.2
[2024-12-25 21:41] VITALS: BP 137/81; O2SAT 96
== END 2024-12-25 17:46 | disposition home or self-care (01) ==
LOC: ER 14:36
DX: R10.10 Upper abdominal pain, unspecified (principal)
CPT/HCPCS: 96361; 93005; 85025; 80048; 36415; 83735; 81025; 80076; 84484; 71260; 74177; 96375; 96374; 99285; Q9967; J2405; J7030